=== PATIENT | female | born 1945 | race Caucasian/White ===

== ENCOUNTER → 2016-09-08 | Outpatient (CLI) | payer OTHER ==
[~2016-09-08] MED LIST: ACETAMINOPHEN-H1 TA1 PO; AMLODIPINE BESYL5 MG PO; AMLODIPINE10 MG PO; ANTIVERT/2525 MG PO; ASPIRIN81 M1 PO; AUGMENTIN 875875 MG PO; BENADRYL25 M1 PO; BENAZEPRIL10 MG PO; BENAZEPRIL40 MG PO; BYETTA10 MCG/0.0 SC; CARAFATE1 G1 PO; CRESTOR40 M1 PO; CYCLOBENZAPRINE10 MG PO; DIOVAN40 MG PO; DIOVAN80 M1 PO; DUREZOL 5 ML5 ML OP; EPA FISH OIL1000 MG PO; FISH OIL SUPER1 SGL PO; GABAPENTIN800 MG PO; GLIMEPIRIDE2 MG PO; GLUCOTROL5 MG PO; GLYBURIDE5 MG PO; HUMALOG100 U/ML SC; HYDROCODONE BIT1 T11 PO; IBUPROFEN600 MG PO; INVOKANA300 M1 PO; JANUVIA100 MG PO; KEFLEX500 MG PO; LANTUS SOLOS100 U/M1 SC; LANTUS100 U/ML SC; LASIX20 MG PO; LEXAPRO10 MG PO; LIDEX0.05% T; LOTENSIN40 MG PO; LYRICA25 MG PO; MACROBID100 M1 PO; MEDROL DOSEPAK4 MG PO; METFORMIN500 MG PO; MICRONASE5 MG PO; MOBIC15 MG PO; MOTRIN IB200 M1 PO; MOTRIN JUNIOR100 M1 PO; NATURE'S BLEND F1 MG PO; NEURONTIN100 MG PO; NEURONTIN300 MG PO; NEXIUM I.V.40 MG PO; NEXIUM20 MG PO; NEXIUM40 MG PO; NORVASC10 MG PO; NORVASC5 MG PO; NOVOLOG MI100 UNIT/2 SC; OMEGA 3 FISH O1 EACH PO; OMEGA-3 KRILL O1 SGL PO; Orphenadrine C100 MG PO; PRAVACHOL20 MG PO; PRAVACHOL40 MG PO; PREDNICOT20 MG PO; PREDNISONE10 MG PO; TOPROL-XL50 MG PO; TRAVATAN 0.0042.5 M1 INTRAOC; TRULICITY1.5 MG/0.5 SC; TYLENOL325 M1 PO; VICODIN 5/500 505 MG PO; VICODIN 500 MG-1 TAB PO; VICTOZA6 MG/ML SC; VITAMIN B COMPL1 T12; VITAMIN B121000 MC2 SL; VITAMIN D2000 IU PO; VITAMIN D5000 IU PO; VITAMIN D5000 UNI1 PO; XANAX0.25 MG PO; ZITHROMAX250 MG PO; ZOCOR80 MG PO; [UNRECOGNIZED DRUG - OTHER] IM
== END | disposition home or self-care (01) ==
LOC: RAD 09:57
DX: M47.896 Other spondylosis, lumbar region (principal); M54.5 Low back pain; N20.0 Calculus of kidney; M25.561 Pain in right knee; M25.461 Effusion, right knee; M25.551 Pain in right hip

== ENCOUNTER 2016-09-11 23:18 | Inpatient (IN) | payer OTHER ==
[~2016-09-11] VITALS: Ht 157.4 cm; Wt 84.5 kg
--- NOTE | ~2016-09-11 | PR ---
[place], [place] PROGRESS NOTE NAME: [facility]OS [id number] UNIT #: [id number] ROOM: 508 DOCTOR: RUBINA COTE [facility]NELLY BIRTHDATE: [birth year] DOS: 09/13/2016 SUBJECTIVE: Feeling fairly well. OBJECTIVE: VITAL SIGNS: Heart rate is about 55-60. SKIN: Warm and not diaphoretic. NECK: Supple. LUNGS: No rales. HEART: S1, S2. No gallops. ABDOMEN: Soft. IMAGING STUDIES: Myocardial perfusion scan abnormal indicated myocardial ischemia. IMPRESSION: Myocardial ischemia, coronary artery disease. PLAN: Coronary arteriography. However, because of the case could not get to the [facility] and probably she may be going to the [facility], make her that she could go from it, fine otherwise, could also be managed as an outpatient and have the cardiac catheterization done electively. Options were explained and we will continue to follow the patient in my office. Instructions were given. NELLY CESPEDES MD CM:PNTRANS [id number] NELLY CESPEDES MD [facility] 09/14/16 0723 interface
--- NOTE | ~2016-09-11 | ST ---
[place], [place] EXERCISE STRESS TEST REPORT NAME: NIKKI AVALOS UNIT #: [id number] ROOM: 508 DOCTOR: RUBINA COTE [facility],NE[facility] BIRTHDATE: [birth year] DOS: 09/12/2016 The patient received Lexiscan 0.4 mg over 10 seconds. Heart rate is 72. No ischemic change in the EKG. No complications isotope injected. Occasional PACs noted on ekg and myocardial perfusion scan to follow. NELLY CESPEDES MD CM:STRESS:EXERCISE STRESS TEST REPORT [id number] NINA TRAORE MD [facility]
--- NOTE | ~2016-09-11 | CON ---
[place], [place] REPORT OF CONSULTATION NAME: [facility]VALOS [facility] [id number] UNIT #: [id number] ROOM: 508 DOCTOR: [facility] B[facility]: [birth year] DOS: 09/12/2016 IMPRESSION: Poorly controlled diabetes mellitus, hemoglobin A1c is elevated and severe hypertension, borderline increase in the troponin. Either nonspecific or could be related to a small non-ST elevation myocardial infarction. The patient has crescendo angina. Headache probably related to posterior neck, probably a little bit of hypertension. Dr. Bruno has seen the patient and blood sugar more than 600 and hemoglobin A1c greater than 7. Overall control of the sugar is not optimal, but not critical. The patient has history of mild aortic aneurysm within the chest. The patient is on metoprolol, and the blood pressure needs to be tightly controlled because of the thoracic aneurysm. REVIEW OF SYSTEMS: HEENT: Unremarkable. CARDIOPULMONARY: As described. GASTROINTESTINAL: Unremarkable. GENITOURINARY: Unremarkable. NEUROLOGICAL: No issue for stroke, no syncope. ALLERGIES: The patient is allergic to SULFA and AVELOX and DILAUDID, DIOVAN, CIPRO, AMLODIPINE, BISOPROLOL, CANDESARTAN, HYDROCHLOROTHIAZIDE and METFORMIN. MEDICATIONS: The patient's gabapentin, ibuprofen, fully p.r.n., not on routine basis, and the patient's prednisone 10 mg daily. The patient also on benazepril, insulin, baby aspirin, metoprolol 50 mg at bedtime, and furosemide 20 mg daily. The patient has a history of smoking in the past, but not now for many years. FAMILY HISTORY: Diabetes and coronary artery disease. History of hypertension. PHYSICAL EXAMINATION: GENERAL: Alert, responding well, hypertensive. LUNGS: No rales heard. HEART: S1, S2 regular. No gallops heard. ABDOMEN: Soft. SKIN: Warm, not diaphoretic, no focal neurologic deficit noted. LABORATORY DATA: Chest x-ray was unremarkable. Troponin is minimally elevated with pulse ox ____ and blood pressure now is 140/82, much stable than initial 224/110, a lot better now with optimum medical therapy. Electrolytes: Sodium 134, otherwise unremarkable and GFR is normal. Hemoglobin is 15.8. EKG, no acute changes. DIAGNOSES: Crescendo angina, possible small non-ST elevation myocardial ____ very minimal elevation of the troponin. [place] coronary artery disease is considered. Strong ____ the patient is hypertensive and diabetic, high risk for coronary artery disease and awaiting for myocardial perfusion scan. I will review the echocardiogram also. [place], [place] REPORT OF CONSULTATION NAME: NIKKI AVALOS UNIT #: [id number] ROOM: 508 DOCTOR: RUBINA COTE [facility] BIRTHDATE: [birth year] Thank you very much for asking me to see the patient. I will follow the patient. NELLY CESPEDES MD CM:CONSTR:REPORT OF CONSULTATION 09/13/16 1450 interface NINA RUBIO DO and APOLONIA ARELLANO
--- NOTE | ~2016-09-11 | PR ---
[place], [place] PROGRESS NOTE NAME: NIKKI AVALOS [facility] #: [id number] UNIT #: [id number] ROOM: 508 DOCTOR: ZAC MANN MD BIRTHDATE: [birth year] DOS: 09/13/2016 CARDIOLOGY PROGRESS NOTE SUBJECTIVE: The patient is a 70-year-old woman with multiple risk factors for coronary artery disease. We were asked to see her to consider possible catheterization. She has been evaluated by Dr. Gray who completed a stress test and echocardiogram. I reviewed the images and agree with the assessment that she does have multiple risk factors. However, I think that the images obtained were fairly low risk. In addition, she has had a catheterization in the past, which was normal. Nonetheless, given her risks, Dr. Gray and the patient's family have requested that we proceed with catheterization. I have arranged for this to occur at the [facility] on 09/14/2016. Indication is number 3 with a score of 8. We will be available to assist in the patient's care while she is hospitalized at [place] but she should be transferred early on the morning of 09/14/2016 for catheterization and revascularization if appropriate at that time. We thank the hospitalist service for asking our advice regarding her care. ZAC MANN MD CM:PNTRANS [phone] ZAC MANN MD 09/14/16 0908 interface
[2016-09-11 23:18] VITALS: BP 190/80
[~2016-09-11 23:18] MED LIST changes: -ACETAMINOPHEN-H1 TA1 PO; -AMLODIPINE BESYL5 MG PO; -CRESTOR40 M1 PO; -GABAPENTIN800 MG PO; -GLIMEPIRIDE2 MG PO; -INVOKANA300 M1 PO; -LANTUS SOLOS100 U/M1 SC; -NATURE'S BLEND F1 MG PO; -TRULICITY1.5 MG/0.5 SC; -VITAMIN D5000 UNI1 PO
[2016-09-12] VITALS (8 sets, daily range): BP systolic 120–224; BP diastolic 62–110
[2016-09-12] LABS: BASO % 0.2 % (0.0-1.0); HEMATOCRIT 44.6 % (37.0-47.0); HEMOGLOBIN 15.8 g/dl (12.0-16.0); IG # 0.2 10*3/uL (0.0-0.1); LYMPH # 1.2 10*3/uL (1.3-4.4); LYMPH % 9.1 % (27.0-41.0); MEAN CELL VOLUME 93.1 fl (81.0-99.0); MEAN CORPUSCULAR HGB CONC 35.4 g/dl (33.0-37.0); MEAN PLATELET VOLUME 10.1 fl (9.6-12.3); MONO # 0.1 10*3/uL (0.1-1.0); MONO % 0.9 % (3.0-9.0); NEUT # 11.6 10*3/uL (2.3-7.9); NEUT % 88.5 % (47.0-73.0); PLATELET COUNT AUTOMATED 200 10*3/uL (130-400); RED BLOOD COUNT 4.79 10*6/uL (4.10-5.10); WHITE BLOOD COUNT 13.1 10*3/uL (4.8-10.8)
[2016-09-12 00:18] LABS: ALBUMIN 3.3 gm/dl (3.1-4.5); ALKALINE PHOSPHATASE 161 U/L (45-117); BILIRUBIN, TOTAL 0.3 mg/dl (0.2-1.0); BUN 17 mg/dl (7-24); CARBON DIOXIDE 23 mmol/L (21-32); CHLORIDE 101 mmol/L (98-107); CPK 35 U/L (26-192); EST GLOM FILT AFRICAN AMERICAN > 60 ml/min; GLUCOSE 477 mg/dL (65-99); LDH 171 U/L (84-246); POTASSIUM 4.2 mmol/L (3.5-5.1); SGOT/AST 33 IU/L (3-35); SGPT/ALT 37 U/L (12-78); SODIUM 134 mmol/L (136-145); TOTAL PROTEIN 6.8 gm/dL (6.4-8.2)
[2016-09-12 00:19] LABS: CKMB 1.5 ng/ml (0.5-3.6)
[2016-09-12 00:22] LABS: TROPONIN I 0.063 ng/ml (<0.045)
[2016-09-12 00:42] LABS: BILIRUBIN NEGATIVE (NEGATIVE); BLOOD NEGATIVE (NEGATIVE); CLARITY CLEAR (CLEAR); COLOR YELLOW (YELLOW); GLUCOSE 3+ (NEGATIVE); KETONE NEGATIVE (NEGATIVE); LEUKO ESTERASE NEGATIVE (NEGATIVE); NITRITE NEGATIVE (NEGATIVE); PROTEIN NEGATIVE (NEGATIVE); UROBILINOGEN 0.2 E.U./dl (0.2-1.0)
[2016-09-12 00:50] LABS: BACTERIA TRACE; EPITHELIAL CELLS 0-2; RBC 0-2 rbc/hpf (0-2); URINE REFLEX COMMENT NO (NO); WBC 0-2 wbc/hpf (0-5)
[2016-09-12] MEDS ORDERED: GABAPENTIN800 MG PO (02:44)
[2016-09-12] MEDS ORDERED: ACETAMINOPHEN-H1 TA1 PO (02:47)
[2016-09-12] MEDS ORDERED: NATURE'S BLEND F1 MG PO (02:49)
[2016-09-12] MEDS ORDERED: LANTUS SOLOS100 U/M1 SC (02:50)
[2016-09-12] MEDS ORDERED: INVOKANA300 M1 PO (02:52)
[2016-09-12] MEDS ORDERED: VITAMIN D5000 UNI1 PO (02:54)
[2016-09-12] MEDS ORDERED: TRULICITY1.5 MG/0.5 SC (02:55)
[2016-09-12] MEDS ORDERED: AMLODIPINE BESYL5 MG PO (03:11)
[2016-09-12] MEDS ORDERED: GLIMEPIRIDE2 MG PO (03:12)
[2016-09-12] MEDS ORDERED: CRESTOR40 M1 PO (03:13)
[2016-09-12 04:02] LABS: BASO % 0.2 % (0.0-1.0); EOS % 0.1 % (1.0-4.0); HEMATOCRIT 42.5 % (37.0-47.0); HEMOGLOBIN 15.1 g/dl (12.0-16.0); IG # 0.2 10*3/uL (0.0-0.1); LYMPH % 12.9 % (27.0-41.0); MEAN CELL VOLUME 91.4 fl (81.0-99.0); MEAN CORPUSCULAR HGB 32.5 pg (27.0-31.0); MEAN CORPUSCULAR HGB CONC 35.5 g/dl (33.0-37.0); MEAN PLATELET VOLUME 9.9 fl (9.6-12.3); MONO # 0.4 10*3/uL (0.1-1.0); MONO % 2.5 % (3.0-9.0); NEUT # 12.8 10*3/uL (2.3-7.9); NEUT % 82.9 % (47.0-73.0); PLATELET COUNT AUTOMATED 215 10*3/uL (130-400); RED BLOOD COUNT 4.65 10*6/uL (4.10-5.10); WHITE BLOOD COUNT 15.4 10*3/uL (4.8-10.8)
[2016-09-12 04:15] LABS: INTERNATIONAL NORM RATIO 0.9 (2.0-3.5); PROTHROMBIN TIME 9.4 SECONDS (9.0-12.4)
[2016-09-12 04:18] LABS: ALBUMIN 3.3 gm/dl (3.1-4.5); ALKALINE PHOSPHATASE 137 U/L (45-117); BILIRUBIN, TOTAL 0.4 mg/dl (0.2-1.0); BUN 14 mg/dl (7-24); CARBON DIOXIDE 25 mmol/L (21-32); CHLORIDE 103 mmol/L (98-107); CHOLESTEROL 174 mg/dL (<200); EST GLOM FILT AFRICAN AMERICAN > 60 ml/min; GLUCOSE 301 mg/dL (65-99); HDL CHOLESTEROL 54 mg/dl (40-60); LDL CHOLESTEROL 83 mg/dL (9-159); MAGNESIUM 2.1 mg/dL (1.5-2.1); PHOSPHOROUS 2.5 mg/dL (2.5-4.9); POTASSIUM 4.1 mmol/L (3.5-5.1); SGOT/AST 25 IU/L (3-35); SGPT/ALT 34 U/L (12-78); SODIUM 138 mmol/L (136-145); TOTAL PROTEIN 6.7 gm/dL (6.4-8.2); TRIGLYCERIDES 183 mg/dl (<150); VLDL CHOLESTEROL 37 mg/dL (6-40)
[2016-09-12 04:19] LABS: FREE T4 0.91 ng/dl (0.76-1.46)
[2016-09-12 04:20] LABS: HEMOGLOBIN A1c 7.4 % (4.8-5.6)
[2016-09-12 04:24] LABS: THYROID STIM HORMONE (HS) 0.811 uIU/ml (0.358-4.75)
[2016-09-12 04:33] LABS: CKMB 1.2 ng/ml (0.5-3.6)
[2016-09-12 07:01] LABS: VITAMIN D, 25-HYDROXY 41.1 ng/mL (30-100)
[2016-09-12 07:02] LABS: FOLIC ACID 19.62 ng/mL (>5.38)
[2016-09-12 10:13] LABS: CKMB 1.5 ng/ml (0.5-3.6); TROPONIN I 0.041 ng/ml (<0.045)
[2016-09-13] VITALS: BP 141/56
[2016-09-13 08:00] VITALS: BP 152/80; BP 180/82
[2016-09-13 12:00] VITALS: BP 172/90
[2016-09-13 16:00] VITALS: BP 141/84
[2016-09-13] MEDS ORDERED: METOPROLOL TART50 M1 PO (19:27)
[2016-09-13] MEDS ORDERED: LISINOPRIL20 MG PO (19:27)
[2016-09-13] MEDS ORDERED: SIMVASTATIN20 MG PO (19:27)
[2016-09-13 20:00] VITALS: BP 138/64
[2016-09-14 00:04] VITALS: BP 130/60
== END 2016-09-14 06:00 | disposition other institution (70) | DRG 305 ==
LOC: ED 23:18 → EDHOLD 09-12 00:43 → 5E 09-12 00:43
PROVIDERS: Internal Medicine; Physician Assistant
PROC: 4A02XM4 Measurement of Cardiac Total Activity, External Approach (ICD-10-PCS; principal; 2016-09-12)
DX: I16.1 Hypertensive emergency (principal); E11.65 Type 2 diabetes mellitus with hyperglycemia; I25.110 Atherosclerotic heart disease of native coronary artery with unstable angina pectoris; J44.9 Chronic obstructive pulmonary disease, unspecified; E44.1 Mild protein-calorie malnutrition; E87.1 Hypo-osmolality and hyponatremia; I10 Essential (primary) hypertension; D72.829 Elevated white blood cell count, unspecified; K21.9 Gastro-esophageal reflux disease without esophagitis; E78.5 Hyperlipidemia, unspecified; F32.9 Major depressive disorder, single episode, unspecified; M54.12 Radiculopathy, cervical region; I25.9 Chronic ischemic heart disease, unspecified; Z86.73 Personal history of transient ischemic attack (TIA), and cerebral infarction without residual deficits; Z90.49 Acquired absence of other specified parts of digestive tract; Z98.51 Tubal ligation status; Z87.891 Personal history of nicotine dependence; Z88.2 Allergy status to sulfonamides; Z88.1 Allergy status to other antibiotic agents; Z88.8 Allergy status to other drugs, medicaments and biological substances; Z79.82 Long term (current) use of aspirin; Z79.4 Long term (current) use of insulin; Z79.899 Other long term (current) drug therapy; Z68.34 Body mass index [BMI] 34.0-34.9, adult

== ENCOUNTER 2016-09-25 14:48 | Emergency (ER) | payer OTHER ==
[~2016-09-25] VITALS: Ht 157.4 cm; Wt 84.4 kg
[~2016-09-25 14:48] MED LIST changes: +ACETAMINOPHEN-H1 TA1 PO; +AMLODIPINE BESYL5 MG PO; +CRESTOR40 M1 PO; +GABAPENTIN800 MG PO; +GLIMEPIRIDE2 MG PO; +INVOKANA300 M1 PO; +LANTUS SOLOS100 U/M1 SC; +LISINOPRIL20 MG PO; +METOPROLOL TART50 M1 PO; +NATURE'S BLEND F1 MG PO; +SIMVASTATIN20 MG PO; +TRULICITY1.5 MG/0.5 SC; +VITAMIN D5000 UNI1 PO
[2016-09-25 14:53] VITALS: BP 149/64
== END 2016-09-25 16:15 | disposition home or self-care (01) ==
LOC: ED 14:48
DX: G89.29 Other chronic pain (principal); M54.5 Low back pain; R03.0 Elevated blood-pressure reading, without diagnosis of hypertension; Z87.891 Personal history of nicotine dependence; Z90.49 Acquired absence of other specified parts of digestive tract; J44.9 Chronic obstructive pulmonary disease, unspecified; F32.9 Major depressive disorder, single episode, unspecified; E11.9 Type 2 diabetes mellitus without complications; K21.9 Gastro-esophageal reflux disease without esophagitis; E78.5 Hyperlipidemia, unspecified; I10 Essential (primary) hypertension; Z86.73 Personal history of transient ischemic attack (TIA), and cerebral infarction without residual deficits; Z79.4 Long term (current) use of insulin; Z79.82 Long term (current) use of aspirin; Z79.899 Other long term (current) drug therapy; Z88.1 Allergy status to other antibiotic agents; Z88.2 Allergy status to sulfonamides; Z88.6 Allergy status to analgesic agent; Z88.8 Allergy status to other drugs, medicaments and biological substances; Z91.041 Radiographic dye allergy status

== ENCOUNTER → 2016-11-15 | Outpatient (CLI) | payer OTHER | LOC: MAMMO 14:00 | DX: Z12.31 Encounter for screening mammogram for malignant neoplasm of breast (principal) ==

== ENCOUNTER → 2017-02-04 | Outpatient (CLI) | payer OTHER ==
[~2017-02-04] MED LIST changes: +B121000 MCG/1 IM; +LANTUS SOL100 UNIT/1 SQ; +LISINOPRIL-HCT1 EACH PO; +METOPROLOL SUCC50 M1 PO; +PERCOCET 10-321 EACH PO
[2017-02-04 11:32] LABS: BASO % 0.4 % (0.0-1.0); EOS # 0.2 10*3/uL (0.0-0.4); EOS % 2.2 % (1.0-4.0); HEMATOCRIT 44.6 % (37.0-47.0); HEMOGLOBIN 15.5 g/dl (12.0-16.0); LYMPH # 2.9 10*3/uL (1.3-4.4); LYMPH % 34.6 % (27.0-41.0); MEAN CELL VOLUME 96.3 fl (81.0-99.0); MEAN CORPUSCULAR HGB 33.5 pg (27.0-31.0); MEAN CORPUSCULAR HGB CONC 34.8 g/dl (33.0-37.0); MEAN PLATELET VOLUME 9.7 fl (9.6-12.3); MONO # 0.5 10*3/uL (0.1-1.0); MONO % 6.2 % (3.0-9.0); NEUT # 4.7 10*3/uL (2.3-7.9); NEUT % 56.4 % (47.0-73.0); PLATELET COUNT AUTOMATED 223 10*3/uL (130-400); RED BLOOD COUNT 4.63 10*6/uL (4.10-5.10); WHITE BLOOD COUNT 8.3 10*3/uL (4.8-10.8)
[2017-02-04 11:54] LABS: ALBUMIN 3.3 gm/dl (3.1-4.5); ALKALINE PHOSPHATASE 105 U/L (45-117); BUN 6 mg/dl (7-24); CHLORIDE 105 mmol/L (98-107); CHOLESTEROL 194 mg/dL (<200); CREATININE 0.84 mg/dL (0.55-1.02); HDL CHOLESTEROL 34 mg/dl (40-60); LDL CHOLESTEROL 92 mg/dL (9-159); POTASSIUM 3.4 mmol/L (3.5-5.1); SGOT/AST 18 IU/L (3-35); SGPT/ALT 20 U/L (12-78); SODIUM 143 mmol/L (136-145); TOTAL PROTEIN 7.4 gm/dL (6.4-8.2); TRIGLYCERIDES 341 mg/dl (<150); VLDL CHOLESTEROL 68 mg/dL (6-40)
== END | disposition home or self-care (01) ==
LOC: LAB 10:27
PROVIDERS: Nurse Practitioner Family
DX: E78.4 Other hyperlipidemia (principal); I10 Essential (primary) hypertension; E11.9 Type 2 diabetes mellitus without complications

== ENCOUNTER 2017-02-06 16:08 | Inpatient (IN) | payer OTHER ==
[2017-02-06] VITALS (7 sets, daily range): BP systolic 168–223; BP diastolic 74–98
[~2017-02-06] VITALS: Ht 157.4 cm; Wt 83.0 kg
[~2017-02-06 16:08] MED LIST changes: -B121000 MCG/1 IM; -LANTUS SOL100 UNIT/1 SQ; -LISINOPRIL-HCT1 EACH PO; -METOPROLOL SUCC50 M1 PO; -PERCOCET 10-321 EACH PO
[2017-02-06 16:50] LABS: BASO % 0.4 % (0.0-1.0); EOS # 0.1 10*3/uL (0.0-0.4); EOS % 1.1 % (1.0-4.0); HEMATOCRIT 42.3 % (37.0-47.0); LYMPH % 31.7 % (27.0-41.0); MEAN CELL VOLUME 93.4 fl (81.0-99.0); MEAN CORPUSCULAR HGB 33.1 pg (27.0-31.0); MEAN CORPUSCULAR HGB CONC 35.5 g/dl (33.0-37.0); MEAN PLATELET VOLUME 9.3 fl (9.6-12.3); MONO # 0.6 10*3/uL (0.1-1.0); NEUT # 5.7 10*3/uL (2.3-7.9); NEUT % 60.6 % (47.0-73.0); PLATELET COUNT AUTOMATED 216 10*3/uL (130-400); RED BLOOD COUNT 4.53 10*6/uL (4.10-5.10); WHITE BLOOD COUNT 9.4 10*3/uL (4.8-10.8)
[2017-02-06] MEDS ORDERED: METOPROLOL SUCC50 M1 PO (16:50)
[2017-02-06] MEDS ORDERED: LISINOPRIL-HCT1 EACH PO (16:54)
[2017-02-06 16:57] LABS: INTERNATIONAL NORM RATIO 0.9 (2.0-3.5)
[2017-02-06 17:11] LABS: ALBUMIN 3.4 gm/dl (3.1-4.5); ALKALINE PHOSPHATASE 102 U/L (45-117); BUN 8 mg/dl (7-24); CHLORIDE 104 mmol/L (98-107); CREATININE 0.84 mg/dL (0.55-1.02); MAGNESIUM 2.1 mg/dL (1.5-2.1); POTASSIUM 3.4 mmol/L (3.5-5.1); SGOT/AST 20 IU/L (3-35); SGPT/ALT 23 U/L (12-78); SODIUM 140 mmol/L (136-145); TOTAL PROTEIN 7.5 gm/dL (6.4-8.2)
[2017-02-06 17:16] LABS: TROPONIN I 0.055 ng/ml (<0.045)
[2017-02-06 17:19] LABS: BILIRUBIN NEGATIVE (NEGATIVE); BLOOD TRACE-INTACT (NEGATIVE); CLARITY CLEAR (CLEAR); COLOR YELLOW (YELLOW); GLUCOSE 3+ (NEGATIVE); KETONE NEGATIVE (NEGATIVE); LEUKO ESTERASE NEGATIVE (NEGATIVE); NITRITE NEGATIVE (NEGATIVE); PH 5.5 (5.0-9.0); SPECIFIC GRAVITY <= 1.005 (1.005-1.030); UROBILINOGEN 0.2 E.U./dl (0.2-1.0)
[2017-02-06 17:30] LABS: BACTERIA 2+; RBC 0-2 rbc/hpf (0-2)
--- NOTE | 2017-02-06 18:40 | NUR ---
A 71, admitted to , under the services of SALOMÓN Gong DO with a diagnosis of CHEST PAIN. Chief complaint is CHEST PAIN. Patient arrived via bed from ER. Monitor applied. Initial assessment completed. Vital signs taken and recorded. SALOMÓN GONG DO notified of admission to the unit. Orders received. See assessment for past medical history, medications and allergies. Patient and/or family oriented to unit. [facility] Clothing/patient valuable form completed. ADELSO DOMINGUEZ
[2017-02-06] MEDS ORDERED: LANTUS SOL100 UNIT/1 SQ ×2 (18:58→22:04)
[2017-02-06] MEDS ORDERED: B121000 MCG/1 IM (20:10)
--- NOTE | 2017-02-06 21:00 | NUR ---
PATIENT LYING IN BED, WHEN GIVEN HER 10PM MEDS, SHE STATED HER LANTUS WAS WRONG IN THE MED REQ AND ALSO THE MOTRIN AND OTHER PAIN PILL. PATIENT CALLED DAUGHTER ON PHONE TO VERIFY MEDS. I CHANGED MED REQ, CONTACTED DR. WALTERS ABOUT THE CHANGES. PATIENT DENIES ANY SYMPTOMS AT THIS TIME. PATIENT STATED SHE IS READY TO GO HOME. WILL CONTINUE TO MONITOR. PATIENT LEFT WITH CALL LIGHT IN REACH.
[2017-02-06] MEDS ORDERED: PERCOCET 10-321 EACH PO (21:51)
[2017-02-07] VITALS: BP 192/75
[2017-02-07 02:00] VITALS: BP 162/82
[2017-02-07 02:11] LABS: BASO % 0.4 % (0.0-1.0); EOS # 0.2 10*3/uL (0.0-0.4); EOS % 1.5 % (1.0-4.0); HEMATOCRIT 40.4 % (37.0-47.0); HEMOGLOBIN 14.3 g/dl (12.0-16.0); LYMPH # 3.5 10*3/uL (1.3-4.4); LYMPH % 35.8 % (27.0-41.0); MEAN CELL VOLUME 93.7 fl (81.0-99.0); MEAN CORPUSCULAR HGB 33.2 pg (27.0-31.0); MEAN CORPUSCULAR HGB CONC 35.4 g/dl (33.0-37.0); MEAN PLATELET VOLUME 9.2 fl (9.6-12.3); MONO # 0.7 10*3/uL (0.1-1.0); MONO % 6.6 % (3.0-9.0); NEUT # 5.5 10*3/uL (2.3-7.9); NEUT % 55.6 % (47.0-73.0); PLATELET COUNT AUTOMATED 209 10*3/uL (130-400); RED BLOOD COUNT 4.31 10*6/uL (4.10-5.10); WHITE BLOOD COUNT 9.9 10*3/uL (4.8-10.8)
[2017-02-07 02:24] LABS: ACT PARTIAL THROMBO TIME 23.3 SECONDS (20.8-31.5); INTERNATIONAL NORM RATIO 0.9 (2.0-3.5)
[2017-02-07 02:25] LABS: BUN 10 mg/dl (7-24); CHLORIDE 102 mmol/L (98-107); CREATININE 0.97 mg/dL (0.55-1.02); SODIUM 140 mmol/L (136-145)
[2017-02-07 02:30] LABS: CHOLESTEROL 204 mg/dL (<200); HDL CHOLESTEROL 31 mg/dl (40-60); LDL CHOLESTEROL 108 mg/dL (9-159); TRIGLYCERIDES 324 mg/dl (<150); VLDL CHOLESTEROL 65 mg/dL (6-40)
[2017-02-07 02:51] LABS: VITAMIN D, 25-HYDROXY 42.2 ng/mL (30-100)
[2017-02-07 08:00] VITALS: BP 148/61
--- NOTE | 2017-02-07 08:00 | NUR ---
AWAKE ALERT AND ORIENTED X3, NO S/S OF DISTRESS. ONLY COMPLAINT IS FEELING DIAPHORETIC. SEE ASSESS. CALL LIGHT IN REACH. WILL CONT TO MONITOR.
--- NOTE | 2017-02-07 08:25 | NUR ---
DR VILLELA NOTIFIED K 3.0
--- NOTE | 2017-02-07 09:00 | NUR ---
Theater Teacher in to talk to patient. Patient states lives at home with alone. There are few steps in the home. Physician: mark garcia Pharmacy: [facility] health services: none Patient's level of ADLs: INDEPENDENT Patient has working utilities: all working DME: none Follow-up physician's appointment after d/c: will be made by hospitalist nurse director upon discharge Does patient want to access PORTAL?: no Discharge plan discussed with patient, patient states she is independent in adls and ambulation, she states she will be going home upon discharge and denies any home needs. MONO HERNANDEZ
[2017-02-07 12:00] VITALS: BP 136/78
--- NOTE | 2017-02-07 12:20 | NUR ---
PT DISCHARGED AT THIS TIME. IV REMOVED AND PRESSURE DRESSING APPLIED. VERBALIZED UNDERSTANDING OF DISCHARGE INTRUCTIONS. HEART MONITOR RETURNED TO FLOOR.
== END 2017-02-07 12:20 | disposition home or self-care (01) | DRG 305 ==
LOC: ED 16:08 → 4E 17:54 → EDHOLD 17:54 → 4E 18:05
PROVIDERS: Internal Medicine; Nurse Practitioner Family; ADMIT Internal Medicine
DX: I16.0 Hypertensive urgency (principal); E11.65 Type 2 diabetes mellitus with hyperglycemia; I71.2 Thoracic aortic aneurysm, without rupture; E44.1 Mild protein-calorie malnutrition; J44.9 Chronic obstructive pulmonary disease, unspecified; E87.6 Hypokalemia; M25.519 Pain in unspecified shoulder; F32.9 Major depressive disorder, single episode, unspecified; R82.71 Bacteriuria; E78.5 Hyperlipidemia, unspecified; K21.9 Gastro-esophageal reflux disease without esophagitis; Z86.73 Personal history of transient ischemic attack (TIA), and cerebral infarction without residual deficits; Z82.49 Family history of ischemic heart disease and other diseases of the circulatory system; Z83.3 Family history of diabetes mellitus; Z91.041 Radiographic dye allergy status; Z88.2 Allergy status to sulfonamides; Z88.1 Allergy status to other antibiotic agents; Z88.8 Allergy status to other drugs, medicaments and biological substances; Z79.82 Long term (current) use of aspirin; Z79.899 Other long term (current) drug therapy; Z79.4 Long term (current) use of insulin; Z68.33 Body mass index [BMI] 33.0-33.9, adult

== ENCOUNTER → 2017-02-15 | Outpatient (CLI) | payer OTHER ==
[~2017-02-15] MED LIST changes: +B121000 MCG/1 IM; +LANTUS SOL100 UNIT/1 SQ; +LISINOPRIL-HCT1 EACH PO; +METOPROLOL SUCC50 M1 PO; +PERCOCET 10-321 EACH PO
== END | disposition home or self-care (01) ==
LOC: LAB 10:37 → MRI 11:00
DX: E87.5 Hyperkalemia (principal); M79.9 Soft tissue disorder, unspecified; R20.0 Anesthesia of skin

== ENCOUNTER → 2017-02-21 | Outpatient (CLI) | payer OTHER | END | disposition home or self-care (01) | LOC: CARD 12:41 | DX: R07.9 Chest pain, unspecified (principal); I10 Essential (primary) hypertension ==

== ENCOUNTER → 2017-04-03 | Outpatient (CLI) | payer OTHER | LOC: RAD 13:54 | DX: M47.897 Other spondylosis, lumbosacral region (principal); M48.061 Spinal stenosis, lumbar region without neurogenic claudication; M48.07 Spinal stenosis, lumbosacral region ==

== ENCOUNTER → 2017-04-15 | Outpatient (CLI) | payer OTHER ==
[2017-04-15 16:47] LABS: BILIRUBIN NEGATIVE (NEGATIVE); BLOOD NEGATIVE (NEGATIVE); CLARITY CLEAR (CLEAR); COLOR YELLOW (YELLOW); GLUCOSE 3+ (NEGATIVE); KETONE NEGATIVE (NEGATIVE); LEUKO ESTERASE TRACE (NEGATIVE); NITRITE NEGATIVE (NEGATIVE); SPECIFIC GRAVITY <= 1.005 (1.005-1.030); UROBILINOGEN 0.2 E.U./dl (0.2-1.0)
[2017-04-15 17:06] LABS: ALBUMIN 3.3 gm/dl (3.1-4.5); ALKALINE PHOSPHATASE 116 U/L (45-117); BUN 11 mg/dl (7-24); CHLORIDE 103 mmol/L (98-107); CHOLESTEROL 148 mg/dL (<200); CREATININE 0.98 mg/dL (0.55-1.02); HDL CHOLESTEROL 39 mg/dl (40-60); LDL CHOLESTEROL 44 mg/dL (9-159); POTASSIUM 3.9 mmol/L (3.5-5.1); SGOT/AST 14 IU/L (3-35); SGPT/ALT 19 U/L (12-78); SODIUM 140 mmol/L (136-145); TOTAL PROTEIN 7.1 gm/dL (6.4-8.2); TRIGLYCERIDES 323 mg/dl (<150); VLDL CHOLESTEROL 65 mg/dL (6-40)
[2017-04-15 17:08] LABS: BILIRUBIN, DIRECT < 0.1 mg/dL (0.0-0.2)
[2017-04-15 17:36] LABS: BACTERIA TRACE; YEAST 1+
== END | disposition home or self-care (01) ==
LOC: LAB 16:13
PROVIDERS: Internal Medicine
DX: E11.65 Type 2 diabetes mellitus with hyperglycemia (principal); E55.9 Vitamin D deficiency, unspecified; E78.5 Hyperlipidemia, unspecified; R31.9 Hematuria, unspecified

== ENCOUNTER 2017-05-16 12:22 | Inpatient (IN) | payer OTHER ==
[~2017-05-16] VITALS: Ht 157.5 cm; Wt 86.8 kg
[2017-05-16 12:50] VITALS: BP 175/75
[2017-05-16] MEDS ORDERED: CRESTOR40 M1 PO (15:28)
[2017-05-16 16:00] VITALS: BP 158/60
[2017-05-16 19:11] LABS: BASO % 0.4 % (0.0-1.0); EOS # 0.1 10*3/uL (0.0-0.4); EOS % 1.2 % (1.0-4.0); HEMATOCRIT 41.4 % (37.0-47.0); HEMOGLOBIN 14.6 g/dl (12.0-16.0); LYMPH # 3.8 10*3/uL (1.3-4.4); LYMPH % 39.9 % (27.0-41.0); MEAN CELL VOLUME 95.4 fl (81.0-99.0); MEAN CORPUSCULAR HGB 33.6 pg (27.0-31.0); MEAN CORPUSCULAR HGB CONC 35.3 g/dl (33.0-37.0); MEAN PLATELET VOLUME 9.9 fl (9.6-12.3); MONO # 0.5 10*3/uL (0.1-1.0); MONO % 5.3 % (3.0-9.0); PLATELET COUNT AUTOMATED 190 10*3/uL (130-400); RED BLOOD COUNT 4.34 10*6/uL (4.10-5.10); RED CELL DISTRI WIDTH 12.8 % (0-14.5); WHITE BLOOD COUNT 9.4 10*3/uL (4.8-10.8)
[2017-05-16 19:28] LABS: ALBUMIN 3.3 gm/dl (3.1-4.5); ALKALINE PHOSPHATASE 107 U/L (45-117); BUN 12 mg/dl (7-24); CHLORIDE 106 mmol/L (98-107); CREATININE 0.87 mg/dL (0.55-1.02); PHOSPHOROUS 2.5 mg/dL (2.5-4.9); POTASSIUM 3.9 mmol/L (3.5-5.1); SGOT/AST 16 IU/L (3-35); SGPT/ALT 22 U/L (12-78); SODIUM 140 mmol/L (136-145); TOTAL PROTEIN 6.8 gm/dL (6.4-8.2); TROPONIN I 0.038 ng/ml (<0.045)
[2017-05-16 19:38] VITALS: BP 184/81
[2017-05-17 07:30] VITALS: BP 142/82
[2017-05-17 12:00] VITALS: BP 147/63
[2017-05-17 16:00] VITALS: BP 151/66
[2017-05-17 20:00] VITALS: BP 153/71
[2017-05-18] VITALS: BP 160/76
[2017-05-18 08:00] VITALS: BP 138/82
[2017-05-18] MEDS ORDERED: PREDNISONE10 MG PO (10:33)
[2017-05-18] MEDS ORDERED: NEURONTIN300 MG PO (10:37)
== END 2017-05-18 11:05 | disposition home or self-care (01) | DRG 552 ==
LOC: 4E 12:22
PROVIDERS: Family Medicine
DX: M48.061 Spinal stenosis, lumbar region without neurogenic claudication (principal); E11.65 Type 2 diabetes mellitus with hyperglycemia; E11.40 Type 2 diabetes mellitus with diabetic neuropathy, unspecified; M50.20 Other cervical disc displacement, unspecified cervical region; E44.1 Mild protein-calorie malnutrition; C64.1 Malignant neoplasm of right kidney, except renal pelvis; M47.816 Spondylosis without myelopathy or radiculopathy, lumbar region; R29.898 Other symptoms and signs involving the musculoskeletal system; I71.2 Thoracic aortic aneurysm, without rupture; K21.9 Gastro-esophageal reflux disease without esophagitis; F32.9 Major depressive disorder, single episode, unspecified; M54.12 Radiculopathy, cervical region; M19.90 Unspecified osteoarthritis, unspecified site; J44.9 Chronic obstructive pulmonary disease, unspecified; I10 Essential (primary) hypertension; R81 Glycosuria; E78.1 Pure hyperglyceridemia; Z68.34 Body mass index [BMI] 34.0-34.9, adult; Z88.2 Allergy status to sulfonamides; Z88.8 Allergy status to other drugs, medicaments and biological substances; Z86.73 Personal history of transient ischemic attack (TIA), and cerebral infarction without residual deficits; Z90.49 Acquired absence of other specified parts of digestive tract; Z79.4 Long term (current) use of insulin; Z98.51 Tubal ligation status; Z88.1 Allergy status to other antibiotic agents; Z91.041 Radiographic dye allergy status; Z79.82 Long term (current) use of aspirin

== ENCOUNTER → 2017-08-29 | Outpatient (CLI) | payer OTHER ==
[2017-08-29 12:22] LABS: BASO # 0.1 10*3/uL (0.0-0.1); BASO % 0.5 % (0.0-1.0); BILIRUBIN NEGATIVE (NEGATIVE); BLOOD NEGATIVE (NEGATIVE); CLARITY SL CLOUDY (CLEAR); COLOR YELLOW (YELLOW); EOS # 0.2 10*3/uL (0.0-0.4); EOS % 1.3 % (1.0-4.0); GLUCOSE 3+ (NEGATIVE); HEMATOCRIT 44.4 % (37.0-47.0); HEMOGLOBIN 15.2 g/dl (12.0-16.0); KETONE NEGATIVE (NEGATIVE); LEUKO ESTERASE NEGATIVE (NEGATIVE); LYMPH # 2.6 10*3/uL (1.3-4.4); MEAN CORPUSCULAR HGB 33.6 pg (27.0-31.0); MEAN CORPUSCULAR HGB CONC 34.2 g/dl (33.0-37.0); MEAN PLATELET VOLUME 9.9 fl (9.6-12.3); MONO # 0.8 10*3/uL (0.1-1.0); MONO % 6.3 % (3.0-9.0); NEUT # 8.3 10*3/uL (2.3-7.9); NEUT % 69.6 % (47.0-73.0); NITRITE NEGATIVE (NEGATIVE); PH 5.5 (5.0-9.0); PLATELET COUNT AUTOMATED 219 10*3/uL (130-400); RED BLOOD COUNT 4.53 10*6/uL (4.10-5.10); RED CELL DISTRI WIDTH 13.1 % (0-14.5); UROBILINOGEN 0.2 E.U./dl (0.2-1.0); WHITE BLOOD COUNT 11.9 10*3/uL (4.8-10.8)
[2017-08-29 12:51] LABS: ALBUMIN 3.4 gm/dl (3.1-4.5); ALKALINE PHOSPHATASE 120 U/L (45-117); BUN 9 mg/dl (7-24); CHLORIDE 100 mmol/L (98-107); CHOLESTEROL 173 mg/dL (<200); CREATININE 1.03 mg/dL (0.55-1.02); HDL CHOLESTEROL 34 mg/dl (40-60); LDL CHOLESTEROL 74 mg/dL (9-159); POTASSIUM 3.6 mmol/L (3.5-5.1); SGOT/AST 18 IU/L (3-35); SGPT/ALT 25 U/L (12-78); SODIUM 139 mmol/L (136-145); TOTAL PROTEIN 7.4 gm/dL (6.4-8.2); TRIGLYCERIDES 324 mg/dl (<150); VLDL CHOLESTEROL 65 mg/dL (6-40)
[2017-08-29 12:56] LABS: BACTERIA 1+; WBC 16-20 wbc/hpf (0-5)
[2017-08-29 15:22] LABS: VITAMIN D, 25-HYDROXY 32.2 ng/mL (30-100)
== END | disposition home or self-care (01) ==
LOC: LAB 11:56
PROVIDERS: Nurse Practitioner Family
DX: I10 Essential (primary) hypertension (principal); E11.9 Type 2 diabetes mellitus without complications; E78.4 Other hyperlipidemia; E53.8 Deficiency of other specified B group vitamins; E55.9 Vitamin D deficiency, unspecified

== ENCOUNTER → 2017-09-29 | Outpatient (CLI) | payer OTHER ==
[2017-09-29 15:35] LABS: BUN 13 mg/dl (7-24); CREATININE 0.87 mg/dL (0.55-1.02)
[2017-09-30 08:09] LABS: IMMUNOGLOBULIN G, QNT 828 mg/dL (700-1600); IMMUNOGLOBULIN M, QNT 92 mg/dL (26-217)
[2017-10-03 15:05] LABS: IMMUNOFIXATION RESULT, SERUM Comment: (.)
== END | disposition home or self-care (01) ==
LOC: MRI 09-22 10:00 → LAB 12:38 → MRI 13:00
PROVIDERS: Psychiatry & Neurology Neurology
DX: Z13.89 Encounter for screening for other disorder (principal); M50.823 Other cervical disc disorders at C6-C7 level; M48.02 Spinal stenosis, cervical region; R93.0 Abnormal findings on diagnostic imaging of skull and head, not elsewhere classified; R26.89 Other abnormalities of gait and mobility; R20.2 Paresthesia of skin; R20.0 Anesthesia of skin; E78.4 Other hyperlipidemia; I10 Essential (primary) hypertension

== ENCOUNTER 2017-10-02 14:51 | Emergency (ER) | payer OTHER ==
[~2017-10-02] VITALS: Ht 157.4 cm; Wt 82.1 kg
[2017-10-02] MEDS ORDERED: CYCLOBENZAPRINE10 MG PO (16:44)
[2017-10-02 17:09] VITALS: BP 179/74
== END 2017-10-02 17:51 | disposition home or self-care (01) ==
LOC: ED 14:51
DX: S16.1XXA Strain of muscle, fascia and tendon at neck level, initial encounter (principal); R51 Headache; E11.9 Type 2 diabetes mellitus without complications; Z91.041 Radiographic dye allergy status; Z88.2 Allergy status to sulfonamides; Z88.1 Allergy status to other antibiotic agents; Z88.8 Allergy status to other drugs, medicaments and biological substances; Z79.899 Other long term (current) drug therapy; Z79.82 Long term (current) use of aspirin; Z87.891 Personal history of nicotine dependence; V43.92XA Unspecified car occupant injured in collision with other type car in traffic accident, initial encounter; Y93.89 Activity, other specified; Y92.413 State road as the place of occurrence of the external cause; Y99.8 Other external cause status

== ENCOUNTER → 2017-10-12 | Outpatient (CLI) | payer OTHER ==
--- NOTE | ~2017-10-12 | ST ---
[place], [place] EXERCISE STRESS TEST REPORT NAME: NIKKI AVALOS UNIT #: [id number] ROOM: DOCTOR: RUBINA COTE [facility] BIRTHDATE: [birth year] DOS: 10/12/2017 LEXISCAN WITH CARDIOLITE The patient received Lexiscan 0.4 over 10 seconds. Heart rate is 80. No ischemic change on the EKG. Isotope was injected. Myocardial perfusion scan to follow. No complication noted. The patient was explained that we will follow subsequently after the myocardial perfusion scan. NELLY CESPEDES MD CM:STRESS:EXERCISE STRESS TEST REPORT [id number] [facility]
== END | disposition home or self-care (01) ==
LOC: CARD 02:47
DX: I25.9 Chronic ischemic heart disease, unspecified (principal); I10 Essential (primary) hypertension; E78.5 Hyperlipidemia, unspecified; R53.81 Other malaise

== ENCOUNTER → 2017-10-22 | Outpatient (CLI) | payer OTHER ==
[2017-10-22 14:08] LABS: BILIRUBIN NEGATIVE (NEGATIVE); BLOOD TRACE-INTACT (NEGATIVE); CLARITY SL CLOUDY (CLEAR); COLOR YELLOW (YELLOW); GLUCOSE 3+ (NEGATIVE); KETONE NEGATIVE (NEGATIVE); LEUKO ESTERASE NEGATIVE (NEGATIVE); NITRITE NEGATIVE (NEGATIVE); PH 5.5 (5.0-9.0); SPECIFIC GRAVITY 1.015 (1.005-1.030); UROBILINOGEN 0.2 E.U./dl (0.2-1.0)
[2017-10-22 14:15] LABS: BACTERIA 1+; RBC 0-2 rbc/hpf (0-2)
[2017-10-22 14:24] LABS: BILIRUBIN, DIRECT 0.2 mg/dL (0.0-0.2); CREATININE 1.21 mg/dL (0.55-1.02); POTASSIUM 3.5 mmol/L (3.5-5.1); TOTAL PROTEIN 8.2 gm/dL (6.4-8.2)
[2017-10-22 14:25] LABS: FREE T4 1.05 ng/dl (0.76-1.46)
[2017-10-22 14:30] LABS: THYROID STIM HORMONE (HS) 2.97 uIU/ml (0.358-4.75)
[2017-10-22 14:50] LABS: VITAMIN D, 25-HYDROXY 46.2 ng/mL (30-100)
== END | disposition home or self-care (01) ==
LOC: LAB 13:37
PROVIDERS: Internal Medicine
DX: E78.5 Hyperlipidemia, unspecified (principal); E55.9 Vitamin D deficiency, unspecified; E11.65 Type 2 diabetes mellitus with hyperglycemia; E04.9 Nontoxic goiter, unspecified

== ENCOUNTER 2018-05-31 22:29 | Inpatient (IN) | payer OTHER ==
[~2018-05-31] VITALS: Ht 157.5 cm; Wt 78.7 kg
--- NOTE | ~2018-05-31 | EKG ---
[place], [place] ELECTROCARDIOGRAM REPORT NAME: NIKKI AVALOS UNIT #: [id number] ROOM: [facility] DOCTOR: EPIPHANY DRAFT REPORT BIRTHDATE: [birth year] [facility] Test Date: 2018-05-31 Test Time: 23:40:00 Pat Name: NIKKI AVALOS Department: Room: [facility] Gender: F Research And Development Scientist: Nimesh Thomas : 1945 Requested By: FLAQUITA ROBERTS Order Number: [id number] Reading MD: Nimesh Odell MD Measurements Intervals [place] Rate: 71 P: -50 CT: 200 QRS: -11 QRSD: 86 T: 150 QT: 420 QTc: 457 Interpretive Statements Sinus or ectopic atrial rhythm LVH with secondary repolarization abnormality Compared to ECG 11/30/2017 21:23:44 Ectopic atrial rhythm now present Left ventricular hypertrophy now present Atrial premature complex(es) no longer present Myocardial infarct finding still present Electronically Signed On 06-01-2018 7:23:47 PST by Nimesh Odell MD CM:EKGRPT:ELECTROCARDIOGRAM REPORT [id number] FLAQUITA ROBERTS MD EPIPHANY DRAFT REPORT FLAQUITA ROBERTS MD
[~2018-05-31 22:29] MED LIST changes: -LEXAPRO10 MG PO; +LEXAPRO20 MG PO
[2018-05-31 22:32] VITALS: BP 234/123
[2018-05-31 22:43] VITALS: BP 200/122
[2018-05-31 23:42] LABS: BASO % 0.4 % (0.0-1.0); EOS # 0.1 10*3/uL (0.0-0.4); EOS % 1.2 % (1.0-4.0); HEMATOCRIT 49.1 % (37.0-47.0); HEMOGLOBIN 16.8 g/dl (12.0-16.0); LYMPH # 3.4 10*3/uL (1.3-4.4); LYMPH % 31.9 % (27.0-41.0); MEAN CELL VOLUME 95.3 fl (81.0-99.0); MEAN CORPUSCULAR HGB 32.6 pg (27.0-31.0); MEAN CORPUSCULAR HGB CONC 34.2 g/dl (33.0-37.0); MEAN PLATELET VOLUME 9.8 fl (9.6-12.3); MONO # 0.7 10*3/uL (0.1-1.0); MONO % 6.5 % (3.0-9.0); NEUT # 6.3 10*3/uL (2.3-7.9); NEUT % 59.6 % (47.0-73.0); PLATELET COUNT AUTOMATED 225 10*3/uL (130-400); RED BLOOD COUNT 5.15 10*6/uL (4.10-5.10); RED CELL DISTRI WIDTH 12.2 % (0-14.5); WHITE BLOOD COUNT 10.6 10*3/uL (4.8-10.8)
[2018-05-31 23:45] LABS: ACT PARTIAL THROMBO TIME 22.2 SECONDS (20.8-31.5); INTERNATIONAL NORM RATIO 0.9 (2.0-3.5)
[2018-05-31 23:51] LABS: ALBUMIN 3.9 gm/dl (3.1-4.5); ALKALINE PHOSPHATASE 117 U/L (45-117); BUN 11 mg/dl (7-24); CHLORIDE 107 mmol/L (98-107); CREATININE 0.93 mg/dL (0.55-1.02); POTASSIUM 3.8 mmol/L (3.5-5.1); SGOT/AST 15 IU/L (3-35); SGPT/ALT 20 U/L (12-78); SODIUM 141 mmol/L (136-145)
--- NOTE | 2018-05-31 23:55 | NUR ---
DR KNOX AWARE OF BLOOD PRESSURE 210/89. TRITRATED CARDENE GTT TO 7.5MG/HR AT THIS TIME
[2018-05-31 23:58] LABS: TROPONIN I 0.065 ng/ml (<0.045)
--- NOTE | 2018-05-31 23:58 | NUR ---
DR KNOX AWARE OF CRITICAL TROPONIN 0.065
[2018-06-01] VITALS (10 sets, daily range): BP systolic 112–182; BP diastolic 56–88
[2018-06-01 01:15] LABS: BILIRUBIN NEGATIVE (NEGATIVE); BLOOD NEGATIVE (NEGATIVE); CLARITY CLEAR (CLEAR); COLOR YELLOW (YELLOW); GLUCOSE 3+ (NEGATIVE); KETONE NEGATIVE (NEGATIVE); LEUKO ESTERASE NEGATIVE (NEGATIVE); NITRITE NEGATIVE (NEGATIVE); PH 6.5 (5.0-9.0); UROBILINOGEN 0.2 E.U./dl (0.2-1.0)
[2018-06-01 01:22] LABS: URINE AMPHETAMINES < 1000 (1000ng/ml); URINE BARBITURATES < 200 (200ng/ml); URINE BENZODIAZEPINES < 200 (200ng/ml); URINE CANNABINOIDS (THC) < 50 (50ng/ml); URINE COCAINE < 300 (300ng/ml); URINE METHADONE < 300 (300ng/ml); URINE OPIATES < 300 (300ng/ml)
[2018-06-01 01:28] LABS: URINE PHENCYCLIDINE < 25 (25ng/ml)
--- NOTE | 2018-06-01 01:40 | NUR ---
A 72, admitted to [facility], under the services of MELONIE Anguiano DO with a diagnosis of HTN CRISIS. Chief complaint is LADD. Patient arrived via ambulatory from ER. Monitor applied. Initial assessment completed. Vital signs taken and recorded. MELONIE ANGUIANO DO notified of admission to the unit. Orders received. See assessment for past medical history, medications and allergies. Patient and/or family oriented to unit. [facility] visitation policy reviewed. Clothing/patient valuable form completed. MOHINDER GIBBS
--- NOTE | 2018-06-01 02:15 | NUR ---
CARDENE WAS TITRATED DOWN TO 5MG.
--- NOTE | 2018-06-01 02:19 | NUR ---
NO LIST OF HOME MEDICATIONS AVAILABLE AT THIS TIME BUT DID CONFIRM THAT PT PHARMACY IS [facility] ([facility]). MEDICATIONS TO BE CONFIRMED IN AM.
--- NOTE | 2018-06-01 02:37 | NUR ---
CARDENE GTT HAS BEEN TITRATED OFF. PT DOZING ON HER LT SIDE. NO COMPLAINTS AT PRESENT TIME.
--- NOTE | 2018-06-01 03:23 | NUR ---
DR ELKINS NOTIFIED OF ELEVATED TROPONIN 0.078
--- NOTE | 2018-06-01 08:00 | NUR ---
PT AAOX3. RESP EASY. PT IS C/O HEADACHE IS STARTING AGAIN. WILL NOTIFY DOCTOR. NO OTHER VOICED COMPLAINTS AT THIS TIME. WILL CONTINUE TO MONITOR PT.
--- NOTE | 2018-06-01 09:10 | NUR ---
SPOKE WITH [facility] PHARMACIST R/T HOME MED. LIST. DR WOOD UPDATED.
[2018-06-01] MEDS ORDERED: NEURONTIN300 MG PO (09:30)
[2018-06-01] MEDS ORDERED: AMARYL4 MG PO (09:32)
[2018-06-01] MEDS ORDERED: OXYCODONE HCL10 M1 PO (09:37)
[2018-06-01] MEDS ORDERED: NATURE'S BLEND F1 MG PO (09:38)
[2018-06-01] MEDS ORDERED: FENOFIBRATE54 MG PO (09:39)
[2018-06-01] MEDS ORDERED: VASCEPA1 G1 PO (09:39)
[2018-06-01] MEDS ORDERED: FARXIGA10 M1 PO (09:40)
[2018-06-01] MEDS ORDERED: OZEMPIC1 MG/0.75 SQ (09:40)
[2018-06-01] MEDS ORDERED: BASAG SOL SQ (09:41)
--- NOTE | 2018-06-01 10:27 | NUR ---
DR RUBIO IN TO SEE PT. UPDATED HIM ON PT'S CONDITION. NEW ORDERS RECEIVED.
--- NOTE | 2018-06-01 11:30 | NUR ---
HEADACHE CONTINUES RATE 5/10 MEDICATED WITH OXY IR ORDERED WILL MONITOR EFFECTS GEO HUTCHINSON OVCT STUDENT NURSE
--- NOTE | 2018-06-01 12:00 | NUR ---
PT REMOVED FROM MONITOR TAKEN TO MRI IN STABLE CONDITION VIA WHEELCHAIR GEO H[facility]CHINSON OVCT STUDENT NURSE
--- NOTE | 2018-06-01 12:15 | NUR ---
PT TO MRI VIA WC.
--- NOTE | 2018-06-01 12:20 | NUR ---
PT MEDICATED WITH TORADOL ORDERED BY DOCTOR FOR CO HEADACHE RATE 11/14 WILL MONITOR EFFECTS GEO HUTCHINSON OVCT STUDENT NURSE
--- NOTE | 2018-06-01 12:38 | NUR ---
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
--- NOTE | 2018-06-01 15:23 | NUR ---
PT C/O BLURRY VISION. MANUAL BP 142/68.
--- NOTE | 2018-06-01 18:57 | NUR ---
CHART CHECK COMPLETE.
--- NOTE | 2018-06-01 19:32 | NUR ---
FAMILY MEMBERS VISIT.
[2018-06-02] VITALS (7 sets, daily range): BP systolic 120–162; BP diastolic 55–90
[2018-06-02 05:15] LABS: BASO % 0.5 % (0.0-1.0); EOS # 0.2 10*3/uL (0.0-0.4); EOS % 1.7 % (1.0-4.0); HEMATOCRIT 43.1 % (37.0-47.0); HEMOGLOBIN 14.8 g/dl (12.0-16.0); LYMPH # 3.8 10*3/uL (1.3-4.4); LYMPH % 44.3 % (27.0-41.0); MEAN CELL VOLUME 94.5 fl (81.0-99.0); MEAN CORPUSCULAR HGB 32.5 pg (27.0-31.0); MEAN CORPUSCULAR HGB CONC 34.3 g/dl (33.0-37.0); MONO # 0.5 10*3/uL (0.1-1.0); NEUT # 4.1 10*3/uL (2.3-7.9); NEUT % 47.3 % (47.0-73.0); PLATELET COUNT AUTOMATED 205 10*3/uL (130-400); RED BLOOD COUNT 4.56 10*6/uL (4.10-5.10); RED CELL DISTRI WIDTH 12.3 % (0-14.5); WHITE BLOOD COUNT 8.7 10*3/uL (4.8-10.8)
[2018-06-02 05:35] LABS: ALKALINE PHOSPHATASE 91 U/L (45-117); BUN 15 mg/dl (7-24); CHOLESTEROL 118 mg/dL (<200); CREATININE 0.86 mg/dL (0.55-1.02); HDL CHOLESTEROL 32 mg/dl (40-60); LDL CHOLESTEROL 49 mg/dL (9-159); PHOSPHOROUS 3.3 mg/dL (2.5-4.9); SGOT/AST 14 IU/L (3-35); SGPT/ALT 14 U/L (12-78); TOTAL PROTEIN 6.4 gm/dL (6.4-8.2); TRIGLYCERIDES 183 mg/dl (<150); VLDL CHOLESTEROL 37 mg/dL (6-40)
[2018-06-02 05:36] LABS: FREE T4 1.05 ng/dl (0.76-1.46)
[2018-06-02 05:37] LABS: CHLORIDE 110 mmol/L (98-107); POTASSIUM 3.6 mmol/L (3.5-5.1); SODIUM 143 mmol/L (136-145)
--- NOTE | 2018-06-02 08:59 | NUR ---
PT RESTING. RESP EASY. VSS. PT DENIES LADD BUT CONTINUES TO HAVE BURRED VISION. PT DENIES OTHER COMPLAINTS. NO ACUTE DISTRESS NOTED AT THIS TIME. WILL CONTINUE TO MONITOR PT.
--- NOTE | 2018-06-02 11:10 | NUR ---
PT INSTRUCTED ON BED ASSIGNMENT CHANGE TO 526. WHEN I ASKED PT IF SHE WOULD LIKE ME TO NOTIFY A FAMILY MEMBER OF BED CHANGE SHE SAID NO.
--- NOTE | 2018-06-02 11:20 | NUR ---
PT TRANSFERED TO 526 VIA WC.
[2018-06-03] VITALS: BP 160/59
--- NOTE | 2018-06-03 06:00 | NUR ---
PATIENT BGM WAS 60. PATIENT GIVEN APPLE JUICE AND CRACKERS. WILL REASSESS BS AT 0645. PATIENT IS COLD AND DIAPHORETIC BUT DENIES ANY FURTHER ISSUES.
[2018-06-03 06:23] LABS: BASO # 0.1 10*3/uL (0.0-0.1); BASO % 0.5 % (0.0-1.0); EOS # 0.1 10*3/uL (0.0-0.4); EOS % 1.3 % (1.0-4.0); HEMATOCRIT 43.8 % (37.0-47.0); HEMOGLOBIN 15.2 g/dl (12.0-16.0); LYMPH # 4.3 10*3/uL (1.3-4.4); MEAN CORPUSCULAR HGB 32.6 pg (27.0-31.0); MEAN CORPUSCULAR HGB CONC 34.7 g/dl (33.0-37.0); MEAN PLATELET VOLUME 9.8 fl (9.6-12.3); MONO # 0.8 10*3/uL (0.1-1.0); MONO % 7.9 % (3.0-9.0); NEUT # 4.5 10*3/uL (2.3-7.9); PLATELET COUNT AUTOMATED 218 10*3/uL (130-400); RED BLOOD COUNT 4.66 10*6/uL (4.10-5.10); RED CELL DISTRI WIDTH 12.3 % (0-14.5); WHITE BLOOD COUNT 9.8 10*3/uL (4.8-10.8)
[2018-06-03 06:32] LABS: ALBUMIN 3.1 gm/dl (3.1-4.5); ALKALINE PHOSPHATASE 92 U/L (45-117); BUN 15 mg/dl (7-24); CHLORIDE 106 mmol/L (98-107); CREATININE 0.83 mg/dL (0.55-1.02); POTASSIUM 3.3 mmol/L (3.5-5.1); SGOT/AST 16 IU/L (3-35); SGPT/ALT 16 U/L (12-78); SODIUM 142 mmol/L (136-145); TOTAL PROTEIN 6.9 gm/dL (6.4-8.2)
--- NOTE | 2018-06-03 06:53 | NUR ---
PATIENTS BGM WAS RECHECKED. RESULT WAS 117. NO CONCERNS AT THIS TIME.
[2018-06-03 08:00] VITALS: BP 162/66
--- NOTE | 2018-06-03 08:37 | NUR ---
PT RESTING IN BED. NO DISTRESS NOTED. NO VOICED C/O. WILL MONITOR
[2018-06-03 12:00] VITALS: BP 164/70
--- NOTE | 2018-06-03 15:00 | NUR ---
Discharge instructions reviewed with patient/family. Patient receptive and verbalizes understanding. Follow-up care arranged. Written instructions given to patient/family. CARMENCITA LOZANO
== END 2018-06-03 14:50 | disposition home or self-care (01) | DRG 304 ==
LOC: ED 22:29 → EDHOLD 06-01 00:42 → ICCU 06-01 00:54 → 5E 06-02 11:04
PROVIDERS: Emergency Medicine; Emergency Medicine Emergency Medical Services; Family Medicine; ADMIT Internal Medicine
DX: I16.1 Hypertensive emergency (principal); G93.41 Metabolic encephalopathy; I24.8 Other forms of acute ischemic heart disease; E44.0 Moderate protein-calorie malnutrition; R11.2 Nausea with vomiting, unspecified; R81 Glycosuria; N06.9 Isolated proteinuria with unspecified morphologic lesion; R79.82 Elevated C-reactive protein (CRP); R74.8 Abnormal levels of other serum enzymes; K21.9 Gastro-esophageal reflux disease without esophagitis; F32.9 Major depressive disorder, single episode, unspecified; E78.5 Hyperlipidemia, unspecified; E11.65 Type 2 diabetes mellitus with hyperglycemia; I10 Essential (primary) hypertension; E11.40 Type 2 diabetes mellitus with diabetic neuropathy, unspecified; M15.9 Polyosteoarthritis, unspecified; E55.9 Vitamin D deficiency, unspecified; G89.29 Other chronic pain; G47.33 Obstructive sleep apnea (adult) (pediatric); E53.8 Deficiency of other specified B group vitamins; I65.23 Occlusion and stenosis of bilateral carotid arteries; E87.8 Other disorders of electrolyte and fluid balance, not elsewhere classified; H53.8 Other visual disturbances; M48.07 Spinal stenosis, lumbosacral region; E78.1 Pure hyperglyceridemia; I77.810 Thoracic aortic ectasia; Z79.4 Long term (current) use of insulin; Z88.2 Allergy status to sulfonamides; Z88.8 Allergy status to other drugs, medicaments and biological substances; Z88.1 Allergy status to other antibiotic agents; Z91.041 Radiographic dye allergy status; Z85.528 Personal history of other malignant neoplasm of kidney; Z86.73 Personal history of transient ischemic attack (TIA), and cerebral infarction without residual deficits; Z90.49 Acquired absence of other specified parts of digestive tract; Z98.51 Tubal ligation status; Z87.891 Personal history of nicotine dependence; Z83.3 Family history of diabetes mellitus; Z82.49 Family history of ischemic heart disease and other diseases of the circulatory system; Z79.82 Long term (current) use of aspirin; Z79.899 Other long term (current) drug therapy; Z68.31 Body mass index [BMI] 31.0-31.9, adult

== ENCOUNTER 2018-09-06 19:27 | Emergency (ER) | payer OTHER ==
[~2018-09-06] VITALS: Ht 157.4 cm; Wt 80.3 kg
[~2018-09-06 19:27] MED LIST changes: +AMARYL4 MG PO; +BASAG SOL SQ; +FARXIGA10 M1 PO; +FENOFIBRATE54 MG PO; +OXYCODONE HCL10 M1 PO; +OZEMPIC1 MG/0.75 SQ; +VASCEPA1 G1 PO
== END 2018-09-06 20:38 | disposition home or self-care (01) ==
LOC: ED 19:27
DX: E11.40 Type 2 diabetes mellitus with diabetic neuropathy, unspecified (principal); I10 Essential (primary) hypertension; K21.9 Gastro-esophageal reflux disease without esophagitis; M19.90 Unspecified osteoarthritis, unspecified site; E78.5 Hyperlipidemia, unspecified; Z91.041 Radiographic dye allergy status; Z88.2 Allergy status to sulfonamides; Z88.1 Allergy status to other antibiotic agents; Z88.8 Allergy status to other drugs, medicaments and biological substances; Z79.899 Other long term (current) drug therapy; Z79.82 Long term (current) use of aspirin; Z87.891 Personal history of nicotine dependence

== ENCOUNTER → 2019-01-11 | Outpatient (CLI) | payer OTHER ==
[2019-01-11 14:49] LABS: BUN 9 mg/dl (7-24); CREATININE 0.75 mg/dL (0.55-1.02)
== END | disposition home or self-care (01) ==
LOC: LAB 00:29 → CT 15:00 → LAB 15:00
PROVIDERS: Urology
DX: C64.9 Malignant neoplasm of unspecified kidney, except renal pelvis (principal); I71.9 Aortic aneurysm of unspecified site, without rupture; K57.90 Diverticulosis of intestine, part unspecified, without perforation or abscess without bleeding; R91.8 Other nonspecific abnormal finding of lung field; J43.9 Emphysema, unspecified; Z90.5 Acquired absence of kidney

== ENCOUNTER → 2019-02-26 | Outpatient (CLI) | payer OTHER | END | disposition home or self-care (01) | LOC: LAB 13:48 | DX: D72.829 Elevated white blood cell count, unspecified (principal) ==

== ENCOUNTER 2019-04-24 14:12 | Emergency (ER) | payer OTHER ==
[~2019-04-24] VITALS: Ht 160 cm; Wt 80.3 kg
[2019-04-24 16:06] VITALS: BP 152/70
== END 2019-04-24 16:17 | disposition home or self-care (01) ==
LOC: ED 14:12
DX: I10 Essential (primary) hypertension (principal); J44.9 Chronic obstructive pulmonary disease, unspecified; E78.00 Pure hypercholesterolemia, unspecified; E11.40 Type 2 diabetes mellitus with diabetic neuropathy, unspecified; K21.9 Gastro-esophageal reflux disease without esophagitis; Z91.041 Radiographic dye allergy status; Z88.2 Allergy status to sulfonamides; Z88.1 Allergy status to other antibiotic agents; Z88.6 Allergy status to analgesic agent; Z88.8 Allergy status to other drugs, medicaments and biological substances; Z79.899 Other long term (current) drug therapy; Z79.82 Long term (current) use of aspirin; Z79.4 Long term (current) use of insulin; Z86.73 Personal history of transient ischemic attack (TIA), and cerebral infarction without residual deficits; Z87.891 Personal history of nicotine dependence

== ENCOUNTER 2019-06-05 13:50 | Emergency (ER) | payer OTHER ==
[~2019-06-05] VITALS: Ht 157.4 cm; Wt 76.2 kg
[2019-06-05 14:22] LABS: BASO # 0.1 10*3/uL (0.0-0.1); BASO % 0.5 % (0.0-1.0); EOS # 0.1 10*3/uL (0.0-0.4); EOS % 0.7 % (1.0-4.0); HEMATOCRIT 47.8 % (37.0-47.0); HEMOGLOBIN 16.5 g/dl (12.0-16.0); LYMPH # 2.4 10*3/uL (1.3-4.4); LYMPH % 24.2 % (27.0-41.0); MEAN CELL VOLUME 92.3 fl (81.0-99.0); MEAN CORPUSCULAR HGB 31.9 pg (27.0-31.0); MEAN CORPUSCULAR HGB CONC 34.5 g/dl (33.0-37.0); MEAN PLATELET VOLUME 10.4 fl (9.6-12.3); MONO # 0.6 10*3/uL (0.1-1.0); MONO % 5.6 % (3.0-9.0); NEUT # 6.8 10*3/uL (2.3-7.9); NEUT % 68.6 % (47.0-73.0); PLATELET COUNT AUTOMATED 203 10*3/uL (130-400); RED BLOOD COUNT 5.18 10*6/uL (4.10-5.10); RED CELL DISTRI WIDTH 12.7 % (0-14.5); WHITE BLOOD COUNT 9.9 10*3/uL (4.8-10.8)
[2019-06-05 14:33] LABS: ACT PARTIAL THROMBO TIME 24.7 SECONDS (20.0-32.1); INTERNATIONAL NORM RATIO 0.9 (2.0-3.5)
[2019-06-05 14:39] LABS: ALBUMIN 3.4 gm/dl (3.1-4.5); CREATININE 1.15 mg/dL (0.55-1.02); POTASSIUM 3.1 mmol/L (3.5-5.1); TOTAL PROTEIN 7.1 gm/dL (6.4-8.2)
[2019-06-05 14:46] LABS: TROPONIN I 0.048 ng/ml (<0.045)
[2019-06-05 16:22] VITALS: BP 161/87
== END 2019-06-05 18:01 | disposition home or self-care (01) ==
LOC: ED 13:50
PROVIDERS: Emergency Medicine
DX: R20.0 Anesthesia of skin (principal); M54.6 Pain in thoracic spine; N64.4 Mastodynia; R79.1 Abnormal coagulation profile; M19.90 Unspecified osteoarthritis, unspecified site; I10 Essential (primary) hypertension; E78.5 Hyperlipidemia, unspecified; K21.9 Gastro-esophageal reflux disease without esophagitis; E11.43 Type 2 diabetes mellitus with diabetic autonomic (poly)neuropathy; J44.9 Chronic obstructive pulmonary disease, unspecified; E78.00 Pure hypercholesterolemia, unspecified; Z87.891 Personal history of nicotine dependence; Z86.718 Personal history of other venous thrombosis and embolism

== ENCOUNTER → 2019-06-15 | Outpatient (CLI) | payer OTHER ==
[~2019-06-15] MED LIST changes: +PROAIR HFA8.5 GM INH; +TESSALON PERLE100 M1 PO; +ZOFRAN4 MG PO
[2019-06-15 12:50] LABS: BUN 8 mg/dl (7-24); CHLORIDE 105 mmol/L (98-107); POTASSIUM 3.6 mmol/L (3.5-5.1); SODIUM 141 mmol/L (136-145)
== END ==
LOC: LAB 11:07
PROVIDERS: Internal Medicine Cardiovascular Disease
DX: I10 Essential (primary) hypertension (principal); R07.9 Chest pain, unspecified; N20.0 Calculus of kidney; Z90.49 Acquired absence of other specified parts of digestive tract

== ENCOUNTER → 2019-06-21 | Outpatient (CLI) | payer OTHER | END | disposition home or self-care (01) | LOC: CT 11:00 | DX: I71.2 Thoracic aortic aneurysm, without rupture (principal) ==

== ENCOUNTER 2019-07-05 15:49 | Emergency (ER) | payer OTHER ==
[~2019-07-05] VITALS: Ht 157.4 cm; Wt 76.2 kg
[~2019-07-05 15:49] MED LIST changes: -PROAIR HFA8.5 GM INH; -TESSALON PERLE100 M1 PO; -ZOFRAN4 MG PO
[2019-07-05 15:55] VITALS: BP 163/93
[2019-07-05 16:49] LABS: BASO % 0.5 % (0.0-1.0); EOS # 0.1 10*3/uL (0.0-0.4); EOS % 1.1 % (1.0-4.0); HEMOGLOBIN 16.9 g/dl (12.0-16.0); LYMPH # 0.8 10*3/uL (1.3-4.4); LYMPH % 9.7 % (27.0-41.0); MEAN CELL VOLUME 93.5 fl (81.0-99.0); MEAN CORPUSCULAR HGB 32.3 pg (27.0-31.0); MEAN CORPUSCULAR HGB CONC 34.5 g/dl (33.0-37.0); MEAN PLATELET VOLUME 10.4 fl (9.6-12.3); MONO # 0.7 10*3/uL (0.1-1.0); NEUT # 6.5 10*3/uL (2.3-7.9); NEUT % 79.5 % (47.0-73.0); PLATELET COUNT AUTOMATED 187 10*3/uL (130-400); RED BLOOD COUNT 5.24 10*6/uL (4.10-5.10); RED CELL DISTRI WIDTH 12.7 % (0-14.5); WHITE BLOOD COUNT 8.2 10*3/uL (4.8-10.8)
[2019-07-05 17:10] LABS: ALBUMIN 3.6 gm/dl (3.1-4.5); ALKALINE PHOSPHATASE 133 U/L (45-117); BUN 7 mg/dl (7-24); CHLORIDE 105 mmol/L (98-107); CREATININE 1.03 mg/dL (0.55-1.02); POTASSIUM 3.2 mmol/L (3.5-5.1); SGOT/AST 31 IU/L (3-35); SGPT/ALT 28 U/L (12-78); SODIUM 141 mmol/L (136-145); TOTAL PROTEIN 7.7 gm/dL (6.4-8.2)
[2019-07-05 17:51] LABS: BACTERIA TRACE; BILIRUBIN NEGATIVE (NEGATIVE); BLOOD TRACE-INTACT (NEGATIVE); CLARITY CLEAR (CLEAR); COLOR STRAW (YELLOW); EPITHELIAL CELLS 0-2; GLUCOSE 2+ (NEGATIVE); KETONE NEGATIVE (NEGATIVE); LEUKO ESTERASE NEGATIVE (NEGATIVE); NITRITE NEGATIVE (NEGATIVE); PH 7.5 (5.0-9.0); RBC 0-2 rbc/hpf (0-2); SPECIFIC GRAVITY 1.015 (1.005-1.030); UROBILINOGEN 0.2 E.U./dl (0.2-1.0); WBC 0-2 wbc/hpf (0-5)
[2019-07-05] MEDS ORDERED: ZOFRAN4 MG PO (18:12)
[2019-07-05] MEDS ORDERED: PROAIR HFA8.5 GM INH (18:12)
[2019-07-05] MEDS ORDERED: TESSALON PERLE100 M1 PO (18:12)
== END 2019-07-05 18:15 | disposition home or self-care (01) ==
LOC: ED 15:49
PROVIDERS: Physician Assistant
DX: B34.9 Viral infection, unspecified (principal); E11.9 Type 2 diabetes mellitus without complications; J44.9 Chronic obstructive pulmonary disease, unspecified; K21.9 Gastro-esophageal reflux disease without esophagitis; I10 Essential (primary) hypertension; E78.00 Pure hypercholesterolemia, unspecified; Z91.041 Radiographic dye allergy status; Z88.2 Allergy status to sulfonamides; Z88.1 Allergy status to other antibiotic agents; Z88.6 Allergy status to analgesic agent; Z88.8 Allergy status to other drugs, medicaments and biological substances; Z79.899 Other long term (current) drug therapy; Z79.82 Long term (current) use of aspirin; Z79.4 Long term (current) use of insulin; Z90.49 Acquired absence of other specified parts of digestive tract; Z87.891 Personal history of nicotine dependence

== ENCOUNTER → 2019-09-24 | Outpatient (CLI) | payer OTHER ==
[~2019-09-24] MED LIST changes: +PROAIR HFA8.5 GM INH; +TESSALON PERLE100 M1 PO; +ZOFRAN4 MG PO
== END | disposition home or self-care (01) ==
LOC: LAB 15:27
DX: L65.9 Nonscarring hair loss, unspecified (principal)

== ENCOUNTER → 2019-11-29 | Outpatient (CLI) | payer OTHER ==
[2019-11-29 09:56] LABS: ALBUMIN 3.3 gm/dl (3.1-4.5); ALKALINE PHOSPHATASE 135 U/L (45-117); BILIRUBIN, DIRECT 0.2 mg/dL (0.0-0.2); BUN 9 mg/dl (7-24); CHLORIDE 103 mmol/L (98-107); CHOLESTEROL 151 mg/dL (<200); CREATININE 0.86 mg/dL (0.55-1.02); FREE T4 1.27 ng/dl (0.76-1.46); HDL CHOLESTEROL 35 mg/dl (40-60); LDL CHOLESTEROL 67 mg/dL (9-159); POTASSIUM 2.9 mmol/L (3.5-5.1); SGOT/AST 14 IU/L (3-35); SGPT/ALT 20 U/L (12-78); SODIUM 137 mmol/L (136-145); TOTAL PROTEIN 7.3 gm/dL (6.4-8.2); TRIGLYCERIDES 246 mg/dl (<150); VLDL CHOLESTEROL 49 mg/dL (6-40)
[2019-11-29 10:37] LABS: VITAMIN D, 25-HYDROXY 40.4 ng/mL (30-100)
[2019-11-29 10:43] LABS: BILIRUBIN NEGATIVE (NEGATIVE); BLOOD NEGATIVE (NEGATIVE); CLARITY SL CLOUDY (CLEAR); COLOR YELLOW (YELLOW); GLUCOSE 3+ (NEGATIVE); KETONE NEGATIVE (NEGATIVE); LEUKO ESTERASE TRACE (NEGATIVE); NITRITE NEGATIVE (NEGATIVE); PH 6.5 (5.0-9.0); SPECIFIC GRAVITY 1.005 (1.005-1.030); UROBILINOGEN 0.2 E.U./dl (0.2-1.0)
== END | disposition home or self-care (01) ==
LOC: LAB 01:30
PROVIDERS: Internal Medicine
DX: E11.65 Type 2 diabetes mellitus with hyperglycemia (principal); E78.5 Hyperlipidemia, unspecified; E04.9 Nontoxic goiter, unspecified; E55.9 Vitamin D deficiency, unspecified; E11.40 Type 2 diabetes mellitus with diabetic neuropathy, unspecified

== ENCOUNTER → 2020-01-24 | Outpatient (CLI) | payer OTHER | END | disposition home or self-care (01) | LOC: CT 13:00 | PROVIDERS: ATTEND Urology | DX: C64.9 Malignant neoplasm of unspecified kidney, except renal pelvis (principal) ==

== ENCOUNTER → 2020-03-23 | Outpatient (CLI) | payer OTHER | END | disposition home or self-care (01) | LOC: COVID19 13:53 | PROVIDERS: ATTEND Nurse Practitioner Family | DX: U07.1 COVID-19 (principal) ==

== ENCOUNTER 2020-04-04 14:33 | Emergency (ER) | payer OTHER ==
[~2020-04-04] VITALS: Ht 160 cm; Wt 90.7 kg
[2020-04-04 15:21] LABS: BASO % 0.4 % (0.0-1.0); EOS # 0.1 10*3/uL (0.0-0.4); HEMATOCRIT 43.2 % (37.0-47.0); LYMPH # 2.2 10*3/uL (1.3-4.4); LYMPH % 30.8 % (27.0-41.0); MEAN CELL VOLUME 86.9 fl (81.0-99.0); MEAN CORPUSCULAR HGB 30.6 pg (27.0-31.0); MEAN CORPUSCULAR HGB CONC 35.2 g/dl (33.0-37.0); MEAN PLATELET VOLUME 9.4 fl (9.6-12.3); MONO # 0.5 10*3/uL (0.1-1.0); MONO % 7.3 % (3.0-9.0); NEUT # 4.2 10*3/uL (2.3-7.9); NEUT % 60.4 % (47.0-73.0); PLATELET COUNT AUTOMATED 395 10*3/uL (130-400); RED BLOOD COUNT 4.97 10*6/uL (4.10-5.10); RED CELL DISTRI WIDTH 11.8 % (0-14.5)
[2020-04-04 15:37] LABS: ACT PARTIAL THROMBO TIME 28.5 SECONDS (20.0-32.1)
[2020-04-04 15:41] LABS: ALBUMIN 2.9 gm/dl (3.1-4.5); ALKALINE PHOSPHATASE 93 U/L (45-117); BUN 8 mg/dl (7-24); CHLORIDE 105 mmol/L (98-107); CREATININE 0.92 mg/dL (0.55-1.02); POTASSIUM 2.6 mmol/L (3.5-5.1); SGOT/AST 11 IU/L (3-35); SGPT/ALT 13 U/L (12-78); SODIUM 138 mmol/L (136-145); TOTAL PROTEIN 7.2 gm/dL (6.4-8.2)
[2020-04-04 15:42] LABS: TROPONIN I 0.113 ng/ml (<0.045)
[2020-04-04 17:04] VITALS: BP 181/94
== END 2020-04-04 19:08 | disposition home or self-care (01) ==
LOC: ED 14:33
PROVIDERS: Emergency Medicine
DX: R06.00 Dyspnea, unspecified (principal); Z91.041 Radiographic dye allergy status; Z88.2 Allergy status to sulfonamides; Z88.8 Allergy status to other drugs, medicaments and biological substances; Z79.899 Other long term (current) drug therapy; Z79.82 Long term (current) use of aspirin; Z79.4 Long term (current) use of insulin

== ENCOUNTER 2020-09-02 22:32 | Emergency (ER) | payer OTHER ==
[~2020-09-02] VITALS: Wt 76.2 kg
[2020-09-02 23:01] LABS: BASO # 0.1 10*3/uL (0.0-0.1); BASO % 0.6 % (0.0-1.0); EOS # 0.2 10*3/uL (0.0-0.4); EOS % 1.9 % (1.0-4.0); HEMATOCRIT 48.7 % (37.0-47.0); LYMPH # 3.5 10*3/uL (1.3-4.4); LYMPH % 37.8 % (27.0-41.0); MEAN CELL VOLUME 91.4 fl (81.0-99.0); MEAN CORPUSCULAR HGB 31.7 pg (27.0-31.0); MEAN CORPUSCULAR HGB CONC 34.7 g/dl (33.0-37.0); MEAN PLATELET VOLUME 10.2 fl (9.6-12.3); MONO # 0.6 10*3/uL (0.1-1.0); MONO % 6.9 % (3.0-9.0); NEUT # 4.9 10*3/uL (2.3-7.9); NEUT % 52.6 % (47.0-73.0); PLATELET COUNT AUTOMATED 228 10*3/uL (130-400); RED BLOOD COUNT 5.33 10*6/uL (4.10-5.10); RED CELL DISTRI WIDTH 12.7 % (0-14.5); WHITE BLOOD COUNT 9.3 10*3/uL (4.8-10.8)
[2020-09-02 23:23] LABS: ALBUMIN 3.8 gm/dl (3.1-4.5); ALKALINE PHOSPHATASE 124 U/L (45-117); BUN 12 mg/dl (7-24); CHLORIDE 105 mmol/L (98-107); CREATININE 1.08 mg/dL (0.55-1.02); POTASSIUM 3.7 mmol/L (3.5-5.1); SGOT/AST 17 IU/L (3-35); SGPT/ALT 19 U/L (12-78); SODIUM 137 mmol/L (136-145); TOTAL PROTEIN 7.9 gm/dL (6.4-8.2)
[2020-09-02 23:25] LABS: TROPONIN I 0.129 ng/ml (<0.045)
[2020-09-02 23:31] VITALS: BP 199/89
== END 2020-09-03 02:09 | disposition home or self-care (01) ==
LOC: ED 22:32
PROVIDERS: Internal Medicine
DX: F41.9 Anxiety disorder, unspecified (principal); R77.8 Other specified abnormalities of plasma proteins; N18.31 Chronic kidney disease, stage 3a; Z91.041 Radiographic dye allergy status; Z88.2 Allergy status to sulfonamides; Z88.6 Allergy status to analgesic agent; Z88.8 Allergy status to other drugs, medicaments and biological substances; Z88.5 Allergy status to narcotic agent; Z79.82 Long term (current) use of aspirin; Z79.899 Other long term (current) drug therapy; Z79.4 Long term (current) use of insulin; Z95.818 Presence of other cardiac implants and grafts; Z90.49 Acquired absence of other specified parts of digestive tract; Z98.51 Tubal ligation status; Z87.891 Personal history of nicotine dependence

== ENCOUNTER → 2020-09-04 | Outpatient (CLI) | payer OTHER ==
[2020-09-04 11:36] LABS: BILIRUBIN Negative (Negative); BLOOD Negative (Negative); CLARITY Clear (Clear); COLOR Yellow (Yellow); GLUCOSE 3+ (Negative); KETONE Negative (Negative); LEUKO ESTERASE Negative (Negative); NITRITE Negative (Negative); PH 5.5 (4.5-8.0); SPECIFIC GRAVITY 1.015 (1.001-1.030)
[2020-09-04 11:49] LABS: ALBUMIN 3.5 gm/dl (3.1-4.5); ALKALINE PHOSPHATASE 122 U/L (45-117); BILIRUBIN, DIRECT 0.2 mg/dL (0.0-0.2); BUN 10 mg/dl (7-24); CHLORIDE 104 mmol/L (98-107); CHOLESTEROL 189 mg/dL (<200); CREATININE 0.89 mg/dL (0.55-1.02); FREE T4 1.06 ng/dl (0.76-1.46); HDL CHOLESTEROL 35 mg/dl (40-60); LDL CHOLESTEROL 103 mg/dL (9-159); SGOT/AST 17 IU/L (3-35); SGPT/ALT 18 U/L (12-78); SODIUM 138 mmol/L (136-145); TOTAL PROTEIN 7.3 gm/dL (6.4-8.2); TRIGLYCERIDES 255 mg/dl (<150); VLDL CHOLESTEROL 51 mg/dL (6-40)
[2020-09-04 11:56] LABS: RBC 0-2 rbc/hpf (0-2)
[2020-09-04 12:08] LABS: VITAMIN D, 25-HYDROXY 31.6 ng/mL (30-100)
== END | disposition home or self-care (01) ==
LOC: LAB 10:37
PROVIDERS: ATTEND Internal Medicine
DX: E11.65 Type 2 diabetes mellitus with hyperglycemia (principal); E78.5 Hyperlipidemia, unspecified; E55.9 Vitamin D deficiency, unspecified; E04.9 Nontoxic goiter, unspecified; E53.8 Deficiency of other specified B group vitamins

== ENCOUNTER → 2021-01-08 | Outpatient (CLI) | payer OTHER ==
[2021-01-08 12:03] LABS: BASO # 0.1 10*3/uL (0.0-0.1); BASO % 0.3 % (0.0-1.0); EOS # 0.1 10*3/uL (0.0-0.4); EOS % 0.6 % (1.0-4.0); HEMATOCRIT 46.4 % (37.0-47.0); LYMPH # 3.3 10*3/uL (1.3-4.4); LYMPH % 19.3 % (27.0-41.0); MEAN CELL VOLUME 94.1 fl (81.0-99.0); MEAN CORPUSCULAR HGB 32.7 pg (27.0-31.0); MEAN CORPUSCULAR HGB CONC 34.7 g/dl (33.0-37.0); MEAN PLATELET VOLUME 9.9 fl (9.6-12.3); MONO # 0.8 10*3/uL (0.1-1.0); MONO % 4.9 % (3.0-9.0); NEUT # 12.8 10*3/uL (2.3-7.9); NEUT % 74.4 % (47.0-73.0); PLATELET COUNT AUTOMATED 236 10*3/uL (130-400); RED BLOOD COUNT 4.93 10*6/uL (4.10-5.10); RED CELL DISTRI WIDTH 13.1 % (0-14.5); WHITE BLOOD COUNT 17.2 10*3/uL (4.8-10.8)
[2021-01-08 12:09] LABS: BILIRUBIN Negative (Negative); BLOOD Negative (Negative); CLARITY Clear (Clear); COLOR Yellow (Yellow); GLUCOSE 2+ (Negative); KETONE Negative (Negative); LEUKO ESTERASE 1+ (Negative); NITRITE Negative (Negative); UROBILINOGEN 0.2 E.U./dl (0.0-1.0)
[2021-01-08 12:15] LABS: BACTERIA 1+; RBC 0-2 rbc/hpf (0-2); WBC 16-20 wbc/hpf (0-5)
[2021-01-08 12:18] LABS: FREE T4 0.86 ng/dl (0.76-1.46)
[2021-01-08 12:20] LABS: ALKALINE PHOSPHATASE 126 U/L (45-117); BUN 19 mg/dl (7-24); CHLORIDE 108 mmol/L (98-107); CHOLESTEROL 199 mg/dL (<200); CREATININE 0.87 mg/dL (0.55-1.02); LDL CHOLESTEROL 108 mg/dL (9-159); POTASSIUM 3.8 mmol/L (3.5-5.1); SGOT/AST 10 IU/L (3-35); SGPT/ALT 20 U/L (12-78); SODIUM 138 mmol/L (136-145); TRIGLYCERIDES 237 mg/dl (<150)
[2021-01-08 12:45] LABS: VITAMIN D, 25-HYDROXY 30.3 ng/mL (30-100)
== END | disposition home or self-care (01) ==
LOC: LAB 03:52
PROVIDERS: Nurse Practitioner Family; ATTEND Internal Medicine
DX: E11.65 Type 2 diabetes mellitus with hyperglycemia (principal); E78.5 Hyperlipidemia, unspecified; E55.9 Vitamin D deficiency, unspecified; E04.9 Nontoxic goiter, unspecified; I10 Essential (primary) hypertension

== ENCOUNTER → 2021-01-12 | Outpatient (CLI) | payer OTHER ==
[2021-01-12 13:50] LABS: BASO # 0.1 10*3/uL (0.0-0.1); BASO % 0.5 % (0.0-1.0); EOS # 0.1 10*3/uL (0.0-0.4); EOS % 0.6 % (1.0-4.0); LYMPH # 3.1 10*3/uL (1.3-4.4); MONO # 0.6 10*3/uL (0.1-1.0); MONO % 4.8 % (3.0-9.0); NEUT # 8.8 10*3/uL (2.3-7.9); NEUT % 69.6 % (47.0-73.0); WHITE BLOOD COUNT 12.7 10*3/uL (4.8-10.8)
== END | disposition home or self-care (01) ==
LOC: LAB 13:17
PROVIDERS: ATTEND Nurse Practitioner Family
DX: D72.9 Disorder of white blood cells, unspecified (principal)

== ENCOUNTER → 2021-01-28 | Outpatient (CLI) | payer OTHER ==
[2021-01-28 13:58] LABS: BUN 10 mg/dl (7-24); CREATININE 0.81 mg/dL (0.55-1.02)
== END | disposition home or self-care (01) ==
LOC: CT 01-27 08:00 → LAB 00:13 → CT 00:13
PROVIDERS: ATTEND Urology
DX: C64.9 Malignant neoplasm of unspecified kidney, except renal pelvis (principal); K40.90 Unilateral inguinal hernia, without obstruction or gangrene, not specified as recurrent; N20.0 Calculus of kidney; K57.30 Diverticulosis of large intestine without perforation or abscess without bleeding

== ENCOUNTER → 2021-04-13 | Outpatient (CLI) | payer OTHER | END | disposition home or self-care (01) | LOC: RAD 12:28 | PROVIDERS: ATTEND Nurse Practitioner Family | DX: M47.817 Spondylosis without myelopathy or radiculopathy, lumbosacral region (principal); M25.551 Pain in right hip; M54.41 Lumbago with sciatica, right side ==

== ENCOUNTER → 2021-06-02 | Outpatient (CLI) | payer OTHER ==
[2021-06-02 09:45] LABS: CREATININE 0.82 mg/dL (0.55-1.02)
== END | disposition home or self-care (01) ==
LOC: LAB 01:45 → CT 09:00
PROVIDERS: ATTEND Internal Medicine Cardiovascular Disease
DX: I71.2 Thoracic aortic aneurysm, without rupture (principal); R91.1 Solitary pulmonary nodule; I10 Essential (primary) hypertension

== ENCOUNTER → 2021-12-13 | Outpatient (CLI) | payer OTHER ==
[2021-12-13 11:32] LABS: BILIRUBIN Negative (Negative); BLOOD Negative (Negative); CLARITY Clear (Clear); COLOR Yellow (Yellow); GLUCOSE 1+ (Negative); KETONE Trace (Negative); LEUKO ESTERASE 1+ (Negative); NITRITE Negative (Negative)
[2021-12-13 11:32] LABS: BASO # 0.1 10*3/uL (0.0-0.1); BASO % 0.8 % (0.0-1.0); EOS # 0.1 10*3/uL (0.0-0.4); EOS % 1.4 % (1.0-4.0); HEMATOCRIT 44.5 % (37.0-47.0); LYMPH # 2.7 10*3/uL (1.3-4.4); MEAN CELL VOLUME 90.3 fl (81.0-99.0); MEAN CORPUSCULAR HGB 31.8 pg (27.0-31.0); MEAN CORPUSCULAR HGB CONC 35.3 g/dl (33.0-37.0); MEAN PLATELET VOLUME 9.9 fl (9.6-12.3); MONO # 0.5 10*3/uL (0.1-1.0); MONO % 5.9 % (3.0-9.0); NEUT # 5.7 10*3/uL (2.3-7.9); NEUT % 62.6 % (47.0-73.0); PLATELET COUNT AUTOMATED 213 10*3/uL (130-400); RED BLOOD COUNT 4.93 10*6/uL (4.10-5.10); RED CELL DISTRI WIDTH 12.7 % (0-14.5); WHITE BLOOD COUNT 9.2 10*3/uL (4.8-10.8)
[2021-12-13 11:38] LABS: BACTERIA TRACE; WBC 21-30 wbc/hpf (0-5)
[2021-12-13 11:39] LABS: HYALINE CAST 21-30; MUCOUS 1+
[2021-12-13 11:50] LABS: ALKALINE PHOSPHATASE 111 U/L (45-117); BUN 13 mg/dl (7-24); CHLORIDE 102 mmol/L (98-107); CHOLESTEROL 234 mg/dL (<200); CREATININE 0.92 mg/dL (0.55-1.02); FREE T4 1.01 ng/dl (0.76-1.46); LDL CHOLESTEROL 133 mg/dL (9-159); SGOT/AST 17 IU/L (3-35); SGPT/ALT 18 U/L (12-78); SODIUM 142 mmol/L (136-145); TOTAL PROTEIN 7.2 gm/dL (6.4-8.2); TRIGLYCERIDES 298 mg/dl (<150); URIC ACID 6.4 mg/dL (2.6-6.0)
== END | disposition home or self-care (01) ==
LOC: LAB 11:05
PROVIDERS: ATTEND Internal Medicine
DX: E11.65 Type 2 diabetes mellitus with hyperglycemia (principal); E78.5 Hyperlipidemia, unspecified; E53.8 Deficiency of other specified B group vitamins; E04.9 Nontoxic goiter, unspecified; D72.820 Lymphocytosis (symptomatic); N30.00 Acute cystitis without hematuria; E55.9 Vitamin D deficiency, unspecified

== ENCOUNTER → 2021-12-30 | Outpatient (CLI) | payer OTHER ==
[~2021-12-30] MED LIST changes: +ALDACTONE25 MG PO; +CLOPIDOGREL75 MG PO; +CRESTOR20 M1 PO; +FARXIGA5 M1 PO; +HUMALOG KW200 UNIT/1 SQ; +K-TAB20 MEQ PO; +OZEMPIC1 MG/0.71 SQ; +PHARMASSURE MA500 MG PO; +TOPROL XL50 M1 PO; +TOUJEO MAX300 UNIT/1 SQ; +VITAMIN D350 MC2 PO; -VITAMIN D5000 UNI1 PO
== END | disposition home or self-care (01) ==
LOC: CT 12-03 11:00
PROVIDERS: ATTEND Internal Medicine Critical Care Medicine
DX: J45.20 Mild intermittent asthma, uncomplicated (principal); R91.1 Solitary pulmonary nodule; Z87.891 Personal history of nicotine dependence; Z85.528 Personal history of other malignant neoplasm of kidney; Z86.16 Personal history of COVID-19; Z68.31 Body mass index [BMI] 31.0-31.9, adult; R91.8 Other nonspecific abnormal finding of lung field; I71.8 Aortic aneurysm of unspecified site, ruptured; I25.10 Atherosclerotic heart disease of native coronary artery without angina pectoris

== ENCOUNTER → 2022-07-25 | Outpatient (CLI) | payer OTHER ==
[~2022-07-25] MED LIST changes: +LEADER ASPIRIN325 MG PO; +LIPITOR40 MG PO; +VIBRA-TAB100 MG PO
== END | disposition home or self-care (01) ==
LOC: US 00:38
PROVIDERS: ATTEND Nurse Practitioner Family
DX: I70.202 Unspecified atherosclerosis of native arteries of extremities, left leg (principal); R09.89 Other specified symptoms and signs involving the circulatory and respiratory systems

== ENCOUNTER → 2022-09-01 | Outpatient (CLI) | payer OTHER ==
[2022-09-01 09:51] LABS: BILIRUBIN Negative (Negative); BLOOD Negative (Negative); CLARITY Clear (Clear); COLOR Yellow (Yellow); GLUCOSE 2+ (Negative); KETONE Negative (Negative); LEUKO ESTERASE 1+ (Negative); NITRITE Negative (Negative); PH 5.5 (4.5-8.0)
[2022-09-01 09:54] LABS: BASO # 0.1 10*3/uL (0.0-0.1); BASO % 0.8 % (0.0-1.0); EOS # 0.2 10*3/uL (0.0-0.4); EOS % 2.9 % (1.0-4.0); LYMPH # 2.8 10*3/uL (1.3-4.4); LYMPH % 38.8 % (27.0-41.0); MEAN CELL VOLUME 94.5 fl (81.0-99.0); MEAN CORPUSCULAR HGB 31.4 pg (27.0-31.0); MEAN CORPUSCULAR HGB CONC 33.3 g/dl (33.0-37.0); MEAN PLATELET VOLUME 9.8 fl (9.6-12.3); MONO # 0.5 10*3/uL (0.1-1.0); MONO % 6.6 % (3.0-9.0); NEUT # 3.6 10*3/uL (2.3-7.9); NEUT % 49.9 % (47.0-73.0); PLATELET COUNT AUTOMATED 200 10*3/uL (130-400); RED BLOOD COUNT 4.55 10*6/uL (4.10-5.10); RED CELL DISTRI WIDTH 12.9 % (0-14.5); WHITE BLOOD COUNT 7.2 10*3/uL (4.8-10.8)
[2022-09-01 10:23] LABS: WBC 21-30 wbc/hpf (0-5); YEAST 4+
[2022-09-01 10:42] LABS: ALKALINE PHOSPHATASE 100 U/L (46-116); BUN 7 mg/dl (9-23); CHLORIDE 107 mmol/L (98-107); CHOLESTEROL 139 mg/dL (<200); LDL CHOLESTEROL 62 mg/dL (9-159); POTASSIUM 2.7 mmol/L (3.4-5.1); SGPT/ALT 7 U/L (10-49); TOTAL PROTEIN 6.3 gm/dL (6.0-8.0); TRIGLYCERIDES 178 mg/dl (<150)
[2022-09-01 10:44] LABS: VITAMIN D, 25-HYDROXY 55.1 ng/mL (30-100)
== END | disposition home or self-care (01) ==
LOC: LAB 01:38
PROVIDERS: ATTEND Internal Medicine
DX: E11.65 Type 2 diabetes mellitus with hyperglycemia (principal); E11.40 Type 2 diabetes mellitus with diabetic neuropathy, unspecified; D72.820 Lymphocytosis (symptomatic); E04.9 Nontoxic goiter, unspecified; E55.9 Vitamin D deficiency, unspecified; E78.5 Hyperlipidemia, unspecified

== ENCOUNTER → 2022-09-02 | Outpatient (CLI) | payer OTHER | END | disposition home or self-care (01) | LOC: RAD 01:11 | PROVIDERS: ATTEND Nurse Practitioner Family | DX: M17.12 Unilateral primary osteoarthritis, left knee (principal) ==

== ENCOUNTER → 2022-09-29 | Outpatient (CLI) | payer OTHER ==
[2022-09-29 13:13] LABS: BASO # 0.1 10*3/uL (0.0-0.1); BASO % 0.5 % (0.0-1.0); EOS # 0.2 10*3/uL (0.0-0.4); EOS % 1.7 % (1.0-4.0); HEMATOCRIT 47.1 % (37.0-47.0); LYMPH # 2.8 10*3/uL (1.3-4.4); LYMPH % 25.7 % (27.0-41.0); MEAN CELL VOLUME 95.2 fl (81.0-99.0); MEAN CORPUSCULAR HGB 32.3 pg (27.0-31.0); MEAN PLATELET VOLUME 9.6 fl (9.6-12.3); MONO # 0.7 10*3/uL (0.1-1.0); MONO % 6.4 % (3.0-9.0); NEUT % 65.3 % (47.0-73.0); PLATELET COUNT AUTOMATED 232 10*3/uL (130-400); RED BLOOD COUNT 4.95 10*6/uL (4.10-5.10); RED CELL DISTRI WIDTH 12.8 % (0-14.5); WHITE BLOOD COUNT 10.7 10*3/uL (4.8-10.8)
[2022-09-29 13:18] LABS: BILIRUBIN Negative (Negative); BLOOD Negative (Negative); CLARITY Clear (Clear); COLOR Yellow (Yellow); GLUCOSE 3+ (Negative); KETONE Negative (Negative); LEUKO ESTERASE Negative (Negative); NITRITE Negative (Negative); PH 5.5 (4.5-8.0); SPECIFIC GRAVITY 1.025 (1.001-1.030); UROBILINOGEN 0.2 E.U./dl (0.0-1.0)
[2022-09-29 13:28] LABS: BACTERIA TRACE; EPITHELIAL CELLS 0-2; RBC 0-2 rbc/hpf (0-2)
[2022-09-29 14:01] LABS: ALKALINE PHOSPHATASE 118 U/L (46-116); BUN 10 mg/dl (9-23); CHLORIDE 106 mmol/L (98-107); CHOLESTEROL 167 mg/dL (<200); LDL CHOLESTEROL 84 mg/dL (9-159); POTASSIUM 4.3 mmol/L (3.4-5.1); THYROID STIM HORMONE (HS) 3.168 uIU/ml (0.550-4.780); TOTAL PROTEIN 7.4 gm/dL (6.0-8.0); TRIGLYCERIDES 208 mg/dl (<150)
[2022-09-29 14:02] LABS: SGPT/ALT < 7 U/L (10-49)
== END | disposition home or self-care (01) ==
LOC: LAB 01:04
PROVIDERS: Internal Medicine; ATTEND Nurse Practitioner Family
DX: E11.65 Type 2 diabetes mellitus with hyperglycemia (principal); E11.40 Type 2 diabetes mellitus with diabetic neuropathy, unspecified; D72.820 Lymphocytosis (symptomatic); E04.9 Nontoxic goiter, unspecified; E78.5 Hyperlipidemia, unspecified; E55.9 Vitamin D deficiency, unspecified

== ENCOUNTER 2022-12-26 11:44 | Emergency (ER) | payer OTHER ==
[~2022-12-26] VITALS: Ht 170.1 cm; Wt 71.7 kg
[~2022-12-26 11:44] MED LIST changes: -AMARYL4 MG PO; +GLIMEPIRIDE4 M1 PO
[2022-12-26 14:16] VITALS: BP 133/54
[2022-12-30] MEDS ORDERED: POTASSIUM CHLO20 ME3 PO (22:11)
[2022-12-30] MEDS ORDERED: ASPIRIN CHEWABL81 MG PO (22:13)
[2022-12-30] MEDS ORDERED: PEPCID20 MG PO (22:14)
[2022-12-30] MEDS ORDERED: LISINOPRIL20 MG PO (22:15)
[2022-12-30] MEDS ORDERED: Imdur SA60 MG PO (22:16)
[2022-12-30] MEDS ORDERED: CLOPIDOGREL75 MG PO (22:16)
[2022-12-30] MEDS ORDERED: B121000 MCG/1 IM (22:19)
[2022-12-30] MEDS ORDERED: OZEMPIC0.25 MG/03 SQ (22:19)
[2022-12-30] MEDS ORDERED: ZETIA10 MG PO (22:21)
[2022-12-31] MEDS ORDERED: NEXIUM 24HR20 M1 PO (11:15)
== END 2022-12-26 14:16 | disposition home or self-care (01) ==
LOC: ED 11:44
DX: S43.402A Unspecified sprain of left shoulder joint, initial encounter (principal); S63.91XA Sprain of unspecified part of right wrist and hand, initial encounter; S40.022A Contusion of left upper arm, initial encounter; E11.9 Type 2 diabetes mellitus without complications; J44.9 Chronic obstructive pulmonary disease, unspecified; I10 Essential (primary) hypertension; K21.9 Gastro-esophageal reflux disease without esophagitis; E78.00 Pure hypercholesterolemia, unspecified; F32.A Depression, unspecified; Z91.041 Radiographic dye allergy status; Z88.2 Allergy status to sulfonamides; Z88.5 Allergy status to narcotic agent; Z88.8 Allergy status to other drugs, medicaments and biological substances; Z90.49 Acquired absence of other specified parts of digestive tract; Z98.51 Tubal ligation status; Z98.890 Other specified postprocedural states; Z95.5 Presence of coronary angioplasty implant and graft; Z87.891 Personal history of nicotine dependence; W06.XXXA Fall from bed, initial encounter; Y93.89 Activity, other specified; Y92.009 Unspecified place in unspecified non-institutional (private) residence as the place of occurrence of the external cause; Y99.8 Other external cause status

== ENCOUNTER → 2023-02-11 | Outpatient (CLI) | payer OTHER ==
[~2023-02-11] MED LIST changes: +ASPIRIN CHEWABL81 MG PO; +Imdur SA60 MG PO; +NEXIUM 24HR20 M1 PO; +OZEMPIC0.25 MG/03 SQ; +PEPCID20 MG PO; +POTASSIUM CHLO20 ME3 PO; +ZETIA10 MG PO
[2023-02-11 09:11] LABS: BILIRUBIN Negative (Negative); BLOOD Negative (Negative); CLARITY Clear (Clear); COLOR Yellow (Yellow); GLUCOSE 3+ (Negative); KETONE Negative (Negative); LEUKO ESTERASE Negative (Negative); NITRITE Negative (Negative); SPECIFIC GRAVITY >= 1.030 (1.001-1.030)
[2023-02-11 09:12] LABS: BASO # 0.1 10*3/uL (0.0-0.1); EOS # 0.2 10*3/uL (0.0-0.4); EOS % 2.4 % (1.0-4.0); LYMPH # 3.1 10*3/uL (1.3-4.4); LYMPH % 36.7 % (27.0-41.0); MEAN CELL VOLUME 94.3 fl (81.0-99.0); MEAN CORPUSCULAR HGB 31.4 pg (27.0-31.0); MEAN CORPUSCULAR HGB CONC 33.3 g/dl (33.0-37.0); MEAN PLATELET VOLUME 9.8 fl (9.6-12.3); MONO # 0.5 10*3/uL (0.1-1.0); MONO % 6.2 % (3.0-9.0); NEUT # 4.5 10*3/uL (2.3-7.9); NEUT % 53.5 % (47.0-73.0); PLATELET COUNT AUTOMATED 255 10*3/uL (130-400); RED BLOOD COUNT 4.88 10*6/uL (4.10-5.10); RED CELL DISTRI WIDTH 12.7 % (0-14.5); WHITE BLOOD COUNT 8.4 10*3/uL (4.8-10.8)
[2023-02-11 09:40] LABS: BACTERIA TRACE; YEAST 1+
[2023-02-11 09:51] LABS: FREE T4 0.96 ng/dl (0.89-1.76); POTASSIUM 4.5 mmol/L (3.4-5.1); TOTAL PROTEIN 7.4 gm/dL (6.0-8.0)
[2023-02-11 10:49] LABS: VITAMIN D, 25-HYDROXY 65.6 ng/mL (30-100)
== END | disposition home or self-care (01) ==
LOC: LAB 02-10 00:04
PROVIDERS: ATTEND Internal Medicine
DX: E11.40 Type 2 diabetes mellitus with diabetic neuropathy, unspecified (principal); E83.42 Hypomagnesemia; E78.5 Hyperlipidemia, unspecified; E04.9 Nontoxic goiter, unspecified; D72.820 Lymphocytosis (symptomatic)

== ENCOUNTER → 2023-06-05 | Outpatient (CLI) | payer OTHER | END | disposition home or self-care (01) | LOC: CT 01:12 | PROVIDERS: ATTEND Urology | DX: C64.9 Malignant neoplasm of unspecified kidney, except renal pelvis (principal); C67.9 Malignant neoplasm of bladder, unspecified; D28.7 Benign neoplasm of other specified female genital organs; N20.0 Calculus of kidney; I87.8 Other specified disorders of veins; K40.90 Unilateral inguinal hernia, without obstruction or gangrene, not specified as recurrent; M16.0 Bilateral primary osteoarthritis of hip; I70.0 Atherosclerosis of aorta; Z90.49 Acquired absence of other specified parts of digestive tract ==

== ENCOUNTER → 2023-07-13 | Outpatient (CLI) | payer OTHER ==
[2023-07-13 11:11] LABS: BASO # 0.1 10*3/uL (0.0-0.1); BASO % 0.9 % (0.0-1.0); EOS # 0.3 10*3/uL (0.0-0.4); EOS % 3.6 % (1.0-4.0); HEMATOCRIT 44.1 % (37.0-47.0); LYMPH # 2.3 10*3/uL (1.3-4.4); LYMPH % 28.8 % (27.0-41.0); MEAN CELL VOLUME 93.4 fl (81.0-99.0); MEAN CORPUSCULAR HGB 30.1 pg (27.0-31.0); MEAN CORPUSCULAR HGB CONC 32.2 g/dl (33.0-37.0); MEAN PLATELET VOLUME 10.2 fl (9.6-12.3); MONO # 0.5 10*3/uL (0.1-1.0); MONO % 6.3 % (3.0-9.0); NEUT # 4.9 10*3/uL (2.3-7.9); NEUT % 60.3 % (47.0-73.0); PLATELET COUNT AUTOMATED 208 10*3/uL (130-400); RED BLOOD COUNT 4.72 10*6/uL (4.10-5.10); RED CELL DISTRI WIDTH 13.4 % (0-14.5); WHITE BLOOD COUNT 8.1 10*3/uL (4.8-10.8)
[2023-07-13 11:21] LABS: URINE CREATININE RANDOM 80.25 mg/dL
[2023-07-13 11:38] LABS: ALKALINE PHOSPHATASE 92 U/L (46-116); BUN 9 mg/dl (9-23); CHLORIDE 108 mmol/L (98-107); CHOLESTEROL 135 mg/dL (<200); LDL CHOLESTEROL 67 mg/dL (9-159); POTASSIUM 4.2 mmol/L (3.4-5.1); SGPT/ALT < 7 U/L (5-49); TOTAL PROTEIN 6.8 gm/dL (6.0-8.0); TRIGLYCERIDES 183 mg/dl (<150)
== END | disposition home or self-care (01) ==
LOC: LAB 10:26
PROVIDERS: ATTEND Nurse Practitioner Family
DX: I10 Essential (primary) hypertension (principal); E11.9 Type 2 diabetes mellitus without complications; E78.5 Hyperlipidemia, unspecified; I71.20 Thoracic aortic aneurysm, without rupture, unspecified; Z85.528 Personal history of other malignant neoplasm of kidney

== ENCOUNTER → 2023-10-21 | Outpatient (CLI) | payer OTHER | END | disposition home or self-care (01) | LOC: CT 00:48 | PROVIDERS: ATTEND Nurse Practitioner Family | DX: I71.20 Thoracic aortic aneurysm, without rupture, unspecified (principal) ==

== ENCOUNTER → 2023-12-21 | Outpatient (CLI) | payer OTHER ==
[2023-12-21 14:03] LABS: BILIRUBIN Negative (Negative); BLOOD Negative (Negative); CLARITY Clear (Clear); COLOR Yellow (Yellow); GLUCOSE 3+ (Negative); KETONE Negative (Negative); LEUKO ESTERASE 1+ (Negative); NITRITE Negative (Negative); UROBILINOGEN 0.2 E.U./dl (0.0-1.0)
[2023-12-21 14:10] LABS: BACTERIA 1+; RBC 0-2 rbc/hpf (0-2); WBC 16-20 wbc/hpf (0-5)
[2023-12-21 14:28] LABS: POTASSIUM 4.5 mmol/L (3.4-5.1); TOTAL PROTEIN 7.1 gm/dL (6.0-8.0)
== END | disposition home or self-care (01) ==
LOC: LAB 02:10
PROVIDERS: ATTEND Internal Medicine
DX: E11.65 Type 2 diabetes mellitus with hyperglycemia (principal); E04.9 Nontoxic goiter, unspecified; E78.5 Hyperlipidemia, unspecified

== ENCOUNTER → 2024-04-08 | Outpatient (CLI) | payer OTHER | END | disposition home or self-care (01) | LOC: RESCLI 01:28 | PROVIDERS: ATTEND Internal Medicine | DX: I10 Essential (primary) hypertension (principal); F41.9 Anxiety disorder, unspecified; K21.9 Gastro-esophageal reflux disease without esophagitis; I71.20 Thoracic aortic aneurysm, without rupture, unspecified; F32.9 Major depressive disorder, single episode, unspecified; E11.9 Type 2 diabetes mellitus without complications; I65.23 Occlusion and stenosis of bilateral carotid arteries; I25.10 Atherosclerotic heart disease of native coronary artery without angina pectoris; C64.2 Malignant neoplasm of left kidney, except renal pelvis; E78.5 Hyperlipidemia, unspecified; I63.9 Cerebral infarction, unspecified; G89.29 Other chronic pain; E53.9 Vitamin B deficiency, unspecified; E55.9 Vitamin D deficiency, unspecified; R26.9 Unspecified abnormalities of gait and mobility; Z79.899 Other long term (current) drug therapy; Z98.890 Other specified postprocedural states; Z88.8 Allergy status to other drugs, medicaments and biological substances; Z88.2 Allergy status to sulfonamides ==

== ENCOUNTER → 2024-04-18 | Outpatient (CLI) | payer OTHER ==
[2024-04-18 10:03] LABS: POTASSIUM 4.5 mmol/L (3.4-5.1); TOTAL PROTEIN 6.9 gm/dL (6.0-8.0)
== END | disposition home or self-care (01) ==
LOC: LAB 00:29
PROVIDERS: ATTEND Internal Medicine
DX: E11.65 Type 2 diabetes mellitus with hyperglycemia (principal); E04.9 Nontoxic goiter, unspecified; E78.5 Hyperlipidemia, unspecified

== ENCOUNTER 2024-04-20 19:13 | Emergency (ER) | payer OTHER ==
[~2024-04-20] VITALS: Ht 157.5 cm; Wt 71.7 kg
[2024-04-20 19:27] VITALS: BP 131/56
== END 2024-04-20 19:45 | disposition home or self-care (01) ==
LOC: ED 19:13
DX: R53.83 Other fatigue (principal); M25.511 Pain in right shoulder; E78.5 Hyperlipidemia, unspecified; K21.9 Gastro-esophageal reflux disease without esophagitis; E11.22 Type 2 diabetes mellitus with diabetic chronic kidney disease; I12.9 Hypertensive chronic kidney disease with stage 1 through stage 4 chronic kidney disease, or unspecified chronic kidney disease; N18.9 Chronic kidney disease, unspecified; J44.9 Chronic obstructive pulmonary disease, unspecified; E78.00 Pure hypercholesterolemia, unspecified; F32.A Depression, unspecified; Z86.73 Personal history of transient ischemic attack (TIA), and cerebral infarction without residual deficits; M19.90 Unspecified osteoarthritis, unspecified site; Z91.041 Radiographic dye allergy status; Z88.1 Allergy status to other antibiotic agents; Z88.2 Allergy status to sulfonamides; Z88.8 Allergy status to other drugs, medicaments and biological substances; Z98.890 Other specified postprocedural states; Z90.49 Acquired absence of other specified parts of digestive tract; Z95.5 Presence of coronary angioplasty implant and graft; Z87.891 Personal history of nicotine dependence; W19.XXXA Unspecified fall, initial encounter; Y93.89 Activity, other specified; Y92.89 Other specified places as the place of occurrence of the external cause; Y99.8 Other external cause status

== ENCOUNTER 2024-06-06 15:45 | Emergency (ER) | payer OTHER ==
[~2024-06-06] VITALS: Ht 61 cm; Wt 71.7 kg
[2024-06-06 15:55] VITALS: BP 136/51
[2024-06-06] MEDS ORDERED: [UNRECOGNIZED DRUG - OTHER] PO (16:01)
[2024-06-06] MEDS ORDERED: OXYCODONE HCL (IR) 5 MG TAB PO ONE (16:40)
[2024-06-06 17:08] LABS: BASO % 0.4 % (0.0-1.0); EOS # 0.1 10*3/uL (0.0-0.4); EOS % 1.4 % (1.0-4.0); MEAN CELL VOLUME 93.1 fl (81.0-99.0); MEAN CORPUSCULAR HGB 29.4 pg (27.0-31.0); MEAN CORPUSCULAR HGB CONC 31.6 g/dl (33.0-37.0); MEAN PLATELET VOLUME 9.5 fl (9.6-12.3); MONO # 0.6 10*3/uL (0.1-1.0); MONO % 6.1 % (3.0-9.0); NEUT # 6.2 10*3/uL (2.3-7.9); NEUT % 67.7 % (47.0-73.0); PLATELET COUNT AUTOMATED 223 10*3/uL (130-400); RED BLOOD COUNT 4.62 10*6/uL (4.10-5.10); RED CELL DISTRI WIDTH 13.9 % (0-14.5); WHITE BLOOD COUNT 9.1 10*3/uL (4.8-10.8)
[2024-06-06 17:30] LABS: POTASSIUM 3.9 mmol/L (3.4-5.1)
[2024-06-06] MEDS ORDERED: ELIQUIS5 M1 PO (18:26)
[2024-06-06] MEDS ORDERED: Enoxaparin Sodium 100 MG/ML SYR SC SCH (22:00)
== END 2024-06-06 18:36 | disposition home or self-care (01) ==
LOC: ED 15:45
PROVIDERS: Internal Medicine
DX: I82.411 Acute embolism and thrombosis of right femoral vein (principal); E11.9 Type 2 diabetes mellitus without complications; J44.9 Chronic obstructive pulmonary disease, unspecified; I10 Essential (primary) hypertension; K21.9 Gastro-esophageal reflux disease without esophagitis; E78.00 Pure hypercholesterolemia, unspecified; F32.A Depression, unspecified; Z86.73 Personal history of transient ischemic attack (TIA), and cerebral infarction without residual deficits; M19.90 Unspecified osteoarthritis, unspecified site; Z91.041 Radiographic dye allergy status; Z88.2 Allergy status to sulfonamides; Z88.1 Allergy status to other antibiotic agents; Z88.8 Allergy status to other drugs, medicaments and biological substances; Z90.49 Acquired absence of other specified parts of digestive tract; Z95.5 Presence of coronary angioplasty implant and graft; Z98.890 Other specified postprocedural states; Z87.891 Personal history of nicotine dependence

== ENCOUNTER → 2024-06-10 | Outpatient (CLI) | payer OTHER ==
[~2024-06-10] MED LIST changes: +ELIQUIS5 M1 PO; +[UNRECOGNIZED DRUG - OTHER] PO
== END | disposition home or self-care (01) ==
LOC: RESCLI 11:09
PROVIDERS: ATTEND Internal Medicine
DX: E11.9 Type 2 diabetes mellitus without complications (principal); I10 Essential (primary) hypertension; E78.5 Hyperlipidemia, unspecified; I63.9 Cerebral infarction, unspecified; I82.409 Acute embolism and thrombosis of unspecified deep veins of unspecified lower extremity; G89.29 Other chronic pain; F41.9 Anxiety disorder, unspecified; F32.9 Major depressive disorder, single episode, unspecified; I25.10 Atherosclerotic heart disease of native coronary artery without angina pectoris; E53.9 Vitamin B deficiency, unspecified; E55.9 Vitamin D deficiency, unspecified; G62.9 Polyneuropathy, unspecified; Z79.899 Other long term (current) drug therapy; Z88.2 Allergy status to sulfonamides; Z88.8 Allergy status to other drugs, medicaments and biological substances

== ENCOUNTER → 2024-07-05 | Outpatient (CLI) | payer OTHER | END | disposition home or self-care (01) | LOC: RESCLI 07:05 | PROVIDERS: ATTEND Internal Medicine | DX: I10 Essential (primary) hypertension (principal); R10.32 Left lower quadrant pain; R42 Dizziness and giddiness; R26.9 Unspecified abnormalities of gait and mobility; I82.409 Acute embolism and thrombosis of unspecified deep veins of unspecified lower extremity; E11.9 Type 2 diabetes mellitus without complications; G89.29 Other chronic pain; E78.5 Hyperlipidemia, unspecified; E53.9 Vitamin B deficiency, unspecified; G62.9 Polyneuropathy, unspecified; E55.9 Vitamin D deficiency, unspecified; I25.10 Atherosclerotic heart disease of native coronary artery without angina pectoris; F41.9 Anxiety disorder, unspecified; Z79.899 Other long term (current) drug therapy; Z98.890 Other specified postprocedural states; Z88.8 Allergy status to other drugs, medicaments and biological substances ==

== ENCOUNTER → 2024-07-25 | Outpatient (CLI) | payer OTHER ==
[2024-07-25 12:03] LABS: BASO % 0.4 % (0.0-1.0); EOS # 0.1 10*3/uL (0.0-0.4); EOS % 1.5 % (1.0-4.0); HEMATOCRIT 29.9 % (37.0-47.0); MEAN CELL VOLUME 87.9 fl (81.0-99.0); MEAN CORPUSCULAR HGB 26.8 pg (27.0-31.0); MEAN CORPUSCULAR HGB CONC 30.4 g/dl (33.0-37.0); MEAN PLATELET VOLUME 9.9 fl (9.6-12.3); MONO # 0.5 10*3/uL (0.1-1.0); MONO % 6.1 % (3.0-9.0); NEUT # 5.2 10*3/uL (2.3-7.9); NEUT % 64.7 % (47.0-73.0); PLATELET COUNT AUTOMATED 263 10*3/uL (130-400); RED CELL DISTRI WIDTH 13.5 % (0-14.5); WHITE BLOOD COUNT 8.1 10*3/uL (4.8-10.8)
[2024-07-25 12:46] LABS: FREE T4 1.16 ng/dl (0.89-1.76); TOTAL PROTEIN 6.6 gm/dL (6.0-8.0)
== END | disposition home or self-care (01) ==
LOC: LAB 02:44 → CT 14:00 → LAB 14:00
PROVIDERS: Student in an Organized Health Care Education/Training Program; ATTEND Internal Medicine
DX: N20.0 Calculus of kidney (principal); D35.01 Benign neoplasm of right adrenal gland; N26.1 Atrophy of kidney (terminal); K57.30 Diverticulosis of large intestine without perforation or abscess without bleeding; I25.10 Atherosclerotic heart disease of native coronary artery without angina pectoris; R42 Dizziness and giddiness; R10.32 Left lower quadrant pain; Z79.899 Other long term (current) drug therapy

== ENCOUNTER 2024-08-02 16:45 | Inpatient (IN) | payer OTHER ==
[~2024-08-02] VITALS: Ht 157.4 cm; Wt 67.8 kg
[2024-08-02 16:52] VITALS: BP 121/42
[2024-08-02] MEDS ORDERED: fentaNYL CITRATE/PF 50 MCG/ML SYRINGE IV ONE (16:55)
[2024-08-02] MEDS ORDERED: Ondansetron Hydrochloride 4 MG/2 ML VIAL IV ONE (16:55)
[2024-08-02] MEDS ORDERED: SODIUM CHLORIDE 0.9% 1,000 ML IV ONE ×2 (16:55→17:55)
[2024-08-02 17:20] LABS: BASO % 0.2 % (0.0-1.0); EOS # 0.1 10*3/uL (0.0-0.4); EOS % 0.6 % (1.0-4.0); HEMATOCRIT 25.8 % (37.0-47.0); MEAN CELL VOLUME 86.3 fl (81.0-99.0); MEAN CORPUSCULAR HGB 25.8 pg (27.0-31.0); MEAN CORPUSCULAR HGB CONC 29.8 g/dl (33.0-37.0); MEAN PLATELET VOLUME 10.5 fl (9.6-12.3); MONO # 0.6 10*3/uL (0.1-1.0); NEUT # 9.5 10*3/uL (2.3-7.9); NEUT % 80.3 % (47.0-73.0); PLATELET COUNT AUTOMATED 260 10*3/uL (130-400); RED BLOOD COUNT 2.99 10*6/uL (4.10-5.10); WHITE BLOOD COUNT 11.9 10*3/uL (4.8-10.8)
[2024-08-02] MEDS ORDERED: PROTONIX20 MG PO (17:32)
[2024-08-02] MEDS ORDERED: HUMALOG100 UNIT/1 SC (17:32)
[2024-08-02] MEDS ORDERED: OXYCODONE HCL (IR) 10 MG TABLET PO ONE (17:40)
[2024-08-02 17:43] LABS: POTASSIUM 5.9 mmol/L (3.4-5.1)
[2024-08-02] MEDS ORDERED: OZEMPIC2 MG/0.71 SQ (17:51)
[2024-08-02] MEDS ORDERED: ELIQUIS5 M1 PO (17:51)
[2024-08-02] MEDS ORDERED: INSULIN REGULAR, HUMAN 1 UNIT/0.01 ML IV ONE (17:55)
[2024-08-02] MEDS ORDERED: SODIUM POLYSTYRENE SULFONATE 15 GM/60 ML BOT PO ONE (17:55)
[2024-08-02 18:15] VITALS: BP 126/48
[2024-08-02] MEDS ORDERED: ACETAMINOPHEN 325 MG TAB PO PRN (18:15)
[2024-08-02] MEDS ORDERED: Ondansetron Hydrochloride 4 MG/2 ML VIAL IV PRN (18:15)
[2024-08-02 20:00] VITALS: BP 139/81
[2024-08-02 20:45] VITALS: BP 123/48
[2024-08-02 21:00] VITALS: BP 133/48
[2024-08-02] MEDS ORDERED: APIXABAN 5 MG TAB PO SCH (22:00)
[2024-08-02] MEDS ORDERED: ATORVASTATIN CALCIUM 80 MG TAB PO SCH (22:00)
[2024-08-02] MEDS ORDERED: OXYCODONE HCL (IR) 10 MG TABLET PO SCH (22:00)
[2024-08-02] MEDS ORDERED: GABAPENTIN 300 MG CAP PO SCH (22:00)
[2024-08-02] MEDS ORDERED: ATORVASTATIN CALCIUM 40 MG TABLET PO SCH (22:00)
[2024-08-02] MEDS ORDERED: DEXTROSE 10 % IN WATER 250 ML IV PRN (23:55)
[2024-08-03] VITALS: BP 128/40
[2024-08-03] MEDS ORDERED: Pantoprazole Sodium 40 MG TAB PO SCH (06:00)
[2024-08-03 06:19] LABS: BASO % 0.3 % (0.0-1.0); EOS # 0.1 10*3/uL (0.0-0.4); EOS % 0.7 % (1.0-4.0); HEMATOCRIT 23.4 % (37.0-47.0); MEAN CELL VOLUME 85.4 fl (81.0-99.0); MEAN CORPUSCULAR HGB 26.3 pg (27.0-31.0); MEAN CORPUSCULAR HGB CONC 30.8 g/dl (33.0-37.0); MONO # 0.5 10*3/uL (0.1-1.0); MONO % 5.9 % (3.0-9.0); NEUT # 5.5 10*3/uL (2.3-7.9); NEUT % 61.1 % (47.0-73.0); PLATELET COUNT AUTOMATED 231 10*3/uL (130-400); RED BLOOD COUNT 2.74 10*6/uL (4.10-5.10)
[2024-08-03 06:32] LABS: TOTAL PROTEIN 5.8 gm/dL (6.0-8.0)
[2024-08-03 07:01] LABS: POTASSIUM 4.2 mmol/L (3.4-5.1)
[2024-08-03] MEDS ORDERED: INSULIN LISPRO 1 UNIT/0.01 ML SQ SCH (07:30)
[2024-08-03 08:00] VITALS: BP 145/58
[2024-08-03] MEDS ORDERED: ISOSORBIDE MONONITRATE 60 MG TAB PO SCH (10:00)
[2024-08-03] MEDS ORDERED: ESCITALOPRAM OXALATE 20 MG TAB PO SCH (10:00)
[2024-08-03] MEDS ORDERED: EZETIMIBE 10 MG TAB PO SCH (10:00)
[2024-08-03] MEDS ORDERED: NA FERRIC GLUC CMPL/SUCROSE 62.5 MG/5 ML VIAL IV SCH (10:00)
[2024-08-03] MEDS ORDERED: ASPIRIN, CHEWABLE 81 MG TAB PO SCH (10:00)
[2024-08-03 12:00] VITALS: BP 134/61
[2024-08-03 16:00] VITALS: BP 103/43
[2024-08-03 20:00] VITALS: BP 130/60
[2024-08-03 21:26] LABS: BILIRUBIN Negative (Negative); BLOOD Negative (Negative); CLARITY Clear (Clear); COLOR Yellow (Yellow); GLUCOSE 3+ (Negative); KETONE Negative (Negative); LEUKO ESTERASE Negative (Negative); NITRITE Negative (Negative); PH 5.5 (4.5-8.0); SPECIFIC GRAVITY 1.025 (1.001-1.030); UROBILINOGEN 0.2 E.U./dl (0.0-1.0)
[2024-08-03 21:45] LABS: EPITHELIAL CELLS 0-2
[2024-08-04] VITALS (8 sets, daily range): BP systolic 118–153; BP diastolic 43–63
[2024-08-04 05:06] LABS: BUN 12 mg/dl (9-23); CHLORIDE 106 mmol/L (98-107); POTASSIUM 4.1 mmol/L (3.4-5.1)
[2024-08-04 06:44] LABS: HEMATOCRIT 21.3 % (37.0-47.0); MEAN CELL VOLUME 85.2 fl (81.0-99.0); MEAN CORPUSCULAR HGB CONC 30.5 g/dl (33.0-37.0); MEAN PLATELET VOLUME 10.9 fl (9.6-12.3); PLATELET COUNT AUTOMATED 221 10*3/uL (130-400); RED CELL DISTRI WIDTH 14.1 % (0-14.5); WHITE BLOOD COUNT 9.6 10*3/uL (4.8-10.8)
[2024-08-04 06:58] LABS: MANUAL DIFF REFLEX YES
[2024-08-04] MEDS ORDERED: Pantoprazole Sodium 40 MG TAB PO SCH (07:03)
[2024-08-04 07:15] LABS: TOTAL CELLS COUNTED 100 #CELLS
[2024-08-04 07:16] LABS: BURR CELLS FEW; OVALOCYTES FEW; PLATELET SUFFICIENCY NORMAL (NORMAL); POLYCHROMASIA SLIGHT
[2024-08-04] MEDS ORDERED: SUCRALFATE 1 GM TAB PO SCH (07:30)
[2024-08-04] MEDS ORDERED: SODIUM CHLORIDE 0.9% 500 ML IV ONE ×2 (09:30→09:47)
[2024-08-04 14:55] LABS: BASO # 0.1 10*3/uL (0.0-0.1); BASO % 0.5 % (0.0-1.0); EOS # 0.1 10*3/uL (0.0-0.4); EOS % 1.3 % (1.0-4.0); HEMATOCRIT 27.7 % (37.0-47.0); MEAN CELL VOLUME 86.3 fl (81.0-99.0); MEAN CORPUSCULAR HGB 26.8 pg (27.0-31.0); MEAN PLATELET VOLUME 10.4 fl (9.6-12.3); MONO # 0.6 10*3/uL (0.1-1.0); MONO % 6.7 % (3.0-9.0); NEUT # 5.7 10*3/uL (2.3-7.9); NEUT % 61.7 % (47.0-73.0); PLATELET COUNT AUTOMATED 232 10*3/uL (130-400); RED BLOOD COUNT 3.21 10*6/uL (4.10-5.10); WHITE BLOOD COUNT 9.2 10*3/uL (4.8-10.8)
[2024-08-05] VITALS (9 sets, daily range): BP systolic 100–171; BP diastolic 42–73
[2024-08-05] MEDS ORDERED: AMLODIPINE BESY10 MG PO (02:04)
[2024-08-05 05:18] LABS: BUN 10 mg/dl (9-23); CHLORIDE 106 mmol/L (98-107); POTASSIUM 4.3 mmol/L (3.4-5.1)
[2024-08-05 06:08] LABS: BASO # 0.1 10*3/uL (0.0-0.1); BASO % 0.5 % (0.0-1.0); EOS # 0.1 10*3/uL (0.0-0.4); EOS % 1.5 % (1.0-4.0); HEMATOCRIT 27.2 % (37.0-47.0); MEAN CELL VOLUME 85.3 fl (81.0-99.0); MEAN CORPUSCULAR HGB CONC 31.6 g/dl (33.0-37.0); MONO # 0.7 10*3/uL (0.1-1.0); MONO % 7.6 % (3.0-9.0); NEUT # 5.3 10*3/uL (2.3-7.9); NEUT % 57.7 % (47.0-73.0); PLATELET COUNT AUTOMATED 231 10*3/uL (130-400); RED BLOOD COUNT 3.19 10*6/uL (4.10-5.10); RED CELL DISTRI WIDTH 14.3 % (0-14.5); WHITE BLOOD COUNT 9.3 10*3/uL (4.8-10.8)
[2024-08-05] MEDS ORDERED: SODIUM CHLORIDE 0.9% 500 ML IV ONE (13:26)
[2024-08-05] MEDS ORDERED: Lidocaine Hydrochloride 5 ML VIAL IV ONE (14:14)
[2024-08-05] MEDS ORDERED: PROPOFOL 200 MG/20 ML VIAL IV ONE (14:14)
[2024-08-05] MEDS ORDERED: fentaNYL CITRATE 100 MCG/2 ML VIAL IV ONE (14:14)
[2024-08-06] VITALS: BP 127/50
[2024-08-06] MEDS ORDERED: Peg Electrolyte Lavage Solut 4,000 ML BOT PO ONE (07:50)
[2024-08-06] MEDS ORDERED: BISACODYL 5 MG TAB PO ONE (07:50)
[2024-08-06 08:00] VITALS: BP 162/62
[2024-08-06 12:00] VITALS: BP 148/57
[2024-08-06 16:00] VITALS: BP 159/51
[2024-08-06 20:00] VITALS: BP 144/52
[2024-08-07] VITALS: BP 119/56
[2024-08-07 06:19] LABS: BASO % 0.4 % (0.0-1.0); EOS # 0.1 10*3/uL (0.0-0.4); EOS % 1.7 % (1.0-4.0); MEAN CELL VOLUME 87.8 fl (81.0-99.0); MEAN CORPUSCULAR HGB CONC 30.7 g/dl (33.0-37.0); MEAN PLATELET VOLUME 10.8 fl (9.6-12.3); MONO # 0.7 10*3/uL (0.1-1.0); MONO % 8.6 % (3.0-9.0); NEUT % 58.9 % (47.0-73.0); PLATELET COUNT AUTOMATED 215 10*3/uL (130-400); RED BLOOD COUNT 3.19 10*6/uL (4.10-5.10); RED CELL DISTRI WIDTH 15.1 % (0-14.5); WHITE BLOOD COUNT 8.5 10*3/uL (4.8-10.8)
[2024-08-07 06:40] VITALS: BP 158/72
[2024-08-07] MEDS ORDERED: SODIUM CHLORIDE 0.9% 500 ML IV ONE (07:01)
[2024-08-07 07:35] VITALS: BP 109/64
[2024-08-07 07:50] VITALS: BP 108/66
[2024-08-07 08:00] VITALS: BP 155/61
[2024-08-07 08:02] VITALS: BP 128/71
[2024-08-07] MEDS ORDERED: Lidocaine Hydrochloride 5 ML VIAL IV ONE (16:01)
[2024-08-07] MEDS ORDERED: PROPOFOL 200 MG/20 ML VIAL IV ONE (16:01)
== END 2024-08-07 12:15 | disposition home or self-care (01) | DRG 377 ==
LOC: ED 16:45 → EDHOLD 18:09 → 4E 18:09 → EDHOLD 18:28 → 4E 19:54
PROVIDERS: Emergency Medicine; Internal Medicine; ADMIT Family Medicine; ATTEND Family Medicine
PROC: 30233N1 Transfusion of Nonautologous Red Blood Cells into Peripheral Vein, Percutaneous Approach (ICD-10-PCS; 2024-08-04)
PROC: 0HBRXZZ Excision of Toe Nail, External Approach (ICD-10-PCS; 2024-08-04)
PROC: 0HBRXZZ Excision of Toe Nail, External Approach (ICD-10-PCS; 2024-08-04)
PROC: 0HBRXZZ Excision of Toe Nail, External Approach (ICD-10-PCS; 2024-08-04)
PROC: 0HBRXZZ Excision of Toe Nail, External Approach (ICD-10-PCS; 2024-08-04)
PROC: 0HBRXZZ Excision of Toe Nail, External Approach (ICD-10-PCS; 2024-08-04)
PROC: 0HBRXZZ Excision of Toe Nail, External Approach (ICD-10-PCS; 2024-08-04)
PROC: 0HBRXZZ Excision of Toe Nail, External Approach (ICD-10-PCS; 2024-08-04)
PROC: 0HBRXZZ Excision of Toe Nail, External Approach (ICD-10-PCS; 2024-08-04)
PROC: 0HBRXZZ Excision of Toe Nail, External Approach (ICD-10-PCS; 2024-08-04)
PROC: 0HBRXZZ Excision of Toe Nail, External Approach (ICD-10-PCS; 2024-08-04)
PROC: 0DJ08ZZ Inspection of Upper Intestinal Tract, Via Natural or Artificial Opening Endoscopic (ICD-10-PCS; 2024-08-05)
PROC: 0DBL8ZZ Excision of Transverse Colon, Via Natural or Artificial Opening Endoscopic (ICD-10-PCS; principal; 2024-08-07)
DX: K57.31 Diverticulosis of large intestine without perforation or abscess with bleeding (principal); N17.0 Acute kidney failure with tubular necrosis; I82.511 Chronic embolism and thrombosis of right femoral vein; E87.20 Acidosis, unspecified; K64.9 Unspecified hemorrhoids; K21.9 Gastro-esophageal reflux disease without esophagitis; E86.0 Dehydration; B35.1 Tinea unguium; I10 Essential (primary) hypertension; E11.40 Type 2 diabetes mellitus with diabetic neuropathy, unspecified; E11.65 Type 2 diabetes mellitus with hyperglycemia; E78.2 Mixed hyperlipidemia; D50.9 Iron deficiency anemia, unspecified; E87.5 Hyperkalemia; K63.5 Polyp of colon; Z91.041 Radiographic dye allergy status; Z88.1 Allergy status to other antibiotic agents; Z88.8 Allergy status to other drugs, medicaments and biological substances; Z79.4 Long term (current) use of insulin; Z88.2 Allergy status to sulfonamides; Z86.73 Personal history of transient ischemic attack (TIA), and cerebral infarction without residual deficits; Z98.51 Tubal ligation status; Z90.49 Acquired absence of other specified parts of digestive tract; Z83.3 Family history of diabetes mellitus; Z82.49 Family history of ischemic heart disease and other diseases of the circulatory system; Z79.899 Other long term (current) drug therapy; Z87.891 Personal history of nicotine dependence; Z79.82 Long term (current) use of aspirin

== ENCOUNTER → 2024-08-08 | Outpatient (CLI) | payer OTHER ==
[~2024-08-08] MED LIST changes: +AMLODIPINE BESY10 MG PO; +HUMALOG100 UNIT/1 SC; +OZEMPIC2 MG/0.71 SQ; +PROTONIX20 MG PO
== END | disposition home or self-care (01) ==
LOC: RESCLI 13:40
PROVIDERS: ATTEND Internal Medicine Infectious Disease
DX: K92.2 Gastrointestinal hemorrhage, unspecified (principal); I25.10 Atherosclerotic heart disease of native coronary artery without angina pectoris; E78.5 Hyperlipidemia, unspecified; E11.9 Type 2 diabetes mellitus without complications; G62.9 Polyneuropathy, unspecified; R26.9 Unspecified abnormalities of gait and mobility; F41.9 Anxiety disorder, unspecified; I10 Essential (primary) hypertension; G89.29 Other chronic pain; E55.9 Vitamin D deficiency, unspecified; E53.9 Vitamin B deficiency, unspecified; I82.401 Acute embolism and thrombosis of unspecified deep veins of right lower extremity; Z79.82 Long term (current) use of aspirin; Z79.899 Other long term (current) drug therapy; Z98.890 Other specified postprocedural states; Z88.8 Allergy status to other drugs, medicaments and biological substances

== ENCOUNTER → 2024-08-14 | Outpatient (CLI) | payer OTHER ==
[2024-08-14 14:48] LABS: BASO # 0.1 10*3/uL (0.0-0.1); BASO % 0.7 % (0.0-1.0); EOS # 0.1 10*3/uL (0.0-0.4); HEMATOCRIT 34.2 % (37.0-47.0); MEAN CELL VOLUME 87.7 fl (81.0-99.0); MEAN CORPUSCULAR HGB 27.2 pg (27.0-31.0); MONO # 0.4 10*3/uL (0.1-1.0); MONO % 5.4 % (3.0-9.0); NEUT # 4.1 10*3/uL (2.3-7.9); NEUT % 61.3 % (47.0-73.0); PLATELET COUNT AUTOMATED 243 10*3/uL (130-400); RED CELL DISTRI WIDTH 16.7 % (0-14.5); WHITE BLOOD COUNT 6.7 10*3/uL (4.8-10.8)
[2024-08-14 15:23] LABS: ALKALINE PHOSPHATASE 78 U/L (46-116); BUN 8 mg/dl (9-23); CHLORIDE 106 mmol/L (98-107); FREE T4 1.25 ng/dl (0.89-1.76); POTASSIUM 3.6 mmol/L (3.4-5.1); SGPT/ALT 15 U/L (5-49); TOTAL PROTEIN 6.6 gm/dL (6.0-8.0)
== END | disposition home or self-care (01) ==
LOC: LAB 00:43
PROVIDERS: Student in an Organized Health Care Education/Training Program; ATTEND Internal Medicine
DX: R10.32 Left lower quadrant pain (principal); R42 Dizziness and giddiness; Z79.899 Other long term (current) drug therapy

== ENCOUNTER → 2024-09-09 | Outpatient (CLI) | payer OTHER ==
[2024-09-09 13:56] LABS: BASO # 0.1 10*3/uL (0.0-0.1); BASO % 0.6 % (0.0-1.0); EOS # 0.1 10*3/uL (0.0-0.4); EOS % 1.6 % (1.0-4.0); HEMATOCRIT 36.1 % (37.0-47.0); MEAN CORPUSCULAR HGB 24.8 pg (27.0-31.0); MEAN CORPUSCULAR HGB CONC 29.9 g/dl (33.0-37.0); MEAN PLATELET VOLUME 10.2 fl (9.6-12.3); MONO # 0.6 10*3/uL (0.1-1.0); MONO % 6.3 % (3.0-9.0); NEUT # 5.5 10*3/uL (2.3-7.9); NEUT % 61.7 % (47.0-73.0); PLATELET COUNT AUTOMATED 256 10*3/uL (130-400); RED BLOOD COUNT 4.35 10*6/uL (4.10-5.10); RED CELL DISTRI WIDTH 16.2 % (0-14.5); WHITE BLOOD COUNT 8.9 10*3/uL (4.8-10.8)
[2024-09-09 14:04] LABS: BILIRUBIN Negative (Negative); BLOOD Negative (Negative); CLARITY Clear (Clear); COLOR Yellow (Yellow); GLUCOSE 3+ (Negative); KETONE Negative (Negative); LEUKO ESTERASE Negative (Negative); NITRITE Negative (Negative); PH 5.5 (4.5-8.0); SPECIFIC GRAVITY >= 1.030 (1.001-1.030)
[2024-09-09 14:24] LABS: POTASSIUM 3.3 mmol/L (3.4-5.1); TOTAL PROTEIN 6.4 gm/dL (6.0-8.0)
[2024-09-09 14:25] LABS: VITAMIN D, 25-HYDROXY 119.4 ng/mL (30-100)
[2024-09-09 14:46] LABS: BACTERIA 1+; YEAST 1+
== END | disposition home or self-care (01) ==
LOC: LAB 13:30
PROVIDERS: ATTEND Internal Medicine
DX: E11.65 Type 2 diabetes mellitus with hyperglycemia (principal); E04.9 Nontoxic goiter, unspecified; E11.40 Type 2 diabetes mellitus with diabetic neuropathy, unspecified; E78.5 Hyperlipidemia, unspecified; E55.9 Vitamin D deficiency, unspecified

== ENCOUNTER → 2024-10-11 | Outpatient (CLI) | payer OTHER | END | disposition home or self-care (01) | LOC: RAD 00:03 | PROVIDERS: ATTEND Physician Assistant | DX: M47.812 Spondylosis without myelopathy or radiculopathy, cervical region (principal); M48.02 Spinal stenosis, cervical region; M51.17 Intervertebral disc disorders with radiculopathy, lumbosacral region; M54.2 Cervicalgia ==

== ENCOUNTER → 2024-10-23 | Outpatient (CLI) | payer OTHER ==
[~2024-10-23] MED LIST changes: +OXYCODONE-ACET1 EACH PO
== END | disposition home or self-care (01) ==
LOC: RESCLI 01:26
PROVIDERS: ATTEND Internal Medicine
DX: I25.10 Atherosclerotic heart disease of native coronary artery without angina pectoris (principal); E78.5 Hyperlipidemia, unspecified; E11.40 Type 2 diabetes mellitus with diabetic neuropathy, unspecified; R26.9 Unspecified abnormalities of gait and mobility; F41.9 Anxiety disorder, unspecified; I10 Essential (primary) hypertension; K92.2 Gastrointestinal hemorrhage, unspecified; E53.9 Vitamin B deficiency, unspecified; E55.9 Vitamin D deficiency, unspecified; I82.409 Acute embolism and thrombosis of unspecified deep veins of unspecified lower extremity; Z86.73 Personal history of transient ischemic attack (TIA), and cerebral infarction without residual deficits

== ENCOUNTER 2024-10-30 14:54 | Emergency (ER) | payer OTHER ==
[~2024-10-30] VITALS: Wt 67.1 kg
[2024-10-30 14:59] VITALS: BP 147/66
== END 2024-10-30 15:56 | disposition home or self-care (01) ==
LOC: ED 14:54
DX: E11.65 Type 2 diabetes mellitus with hyperglycemia (principal); R53.83 Other fatigue; Z91.041 Radiographic dye allergy status; Z88.2 Allergy status to sulfonamides; Z88.1 Allergy status to other antibiotic agents; Z88.6 Allergy status to analgesic agent; Z91.018 Allergy to other foods; Z79.899 Other long term (current) drug therapy; Z79.82 Long term (current) use of aspirin; Z79.4 Long term (current) use of insulin; Z90.49 Acquired absence of other specified parts of digestive tract; Z87.891 Personal history of nicotine dependence

== ENCOUNTER → 2025-01-13 | Outpatient (CLI) | payer OTHER ==
[2025-01-13 11:36] LABS: BUN 10 mg/dl (9-23); LDL CHOLESTEROL 46 mg/dL (9-159); SGPT/ALT 14 U/L (5-49); VITAMIN D, 25-HYDROXY 87.3 ng/mL (30-100)
== END | disposition home or self-care (01) ==
LOC: LAB 01-10 00:33
PROVIDERS: ATTEND Internal Medicine
DX: E11.40 Type 2 diabetes mellitus with diabetic neuropathy, unspecified (principal); E11.65 Type 2 diabetes mellitus with hyperglycemia; E04.9 Nontoxic goiter, unspecified; E78.5 Hyperlipidemia, unspecified; E55.9 Vitamin D deficiency, unspecified

== ENCOUNTER → 2025-02-18 | Outpatient (CLI) | payer OTHER ==
[~2025-02-18] MED LIST changes: -FARXIGA5 M1 PO; +LISINOPRIL40 MG PO; +OXYCODONE HCL5 MG PO; +[UNRECOGNIZED DRUG - OTHER] PO
== END | disposition home or self-care (01) ==
LOC: RESCLI 02:41
PROVIDERS: ATTEND Student in an Organized Health Care Education/Training Program
DX: H66.90 Otitis media, unspecified, unspecified ear (principal); H61.20 Impacted cerumen, unspecified ear; J30.9 Allergic rhinitis, unspecified; I25.10 Atherosclerotic heart disease of native coronary artery without angina pectoris; E78.5 Hyperlipidemia, unspecified; R26.9 Unspecified abnormalities of gait and mobility; E11.40 Type 2 diabetes mellitus with diabetic neuropathy, unspecified; F41.9 Anxiety disorder, unspecified; I10 Essential (primary) hypertension; K92.2 Gastrointestinal hemorrhage, unspecified; E53.9 Vitamin B deficiency, unspecified; E55.9 Vitamin D deficiency, unspecified; Z79.899 Other long term (current) drug therapy

== ENCOUNTER 2025-02-23 08:38 | Inpatient (IN) | payer OTHER ==
[2025-02-23] VITALS (9 sets, daily range): BP systolic 151–196; BP diastolic 44–100
[~2025-02-23] VITALS: Ht 157.4 cm; Wt 66.0 kg
[~2025-02-23 08:38] MED LIST changes: -LISINOPRIL40 MG PO; -OXYCODONE HCL5 MG PO; -[UNRECOGNIZED DRUG - OTHER] PO
[2025-02-23 09:30] LABS: BASO # 0.0 10*3/uL (0.0-0.1); BASO % 0.5 % (0.0-1.0); EOS # 0.2 10*3/uL (0.0-0.4); EOS % 2.3 % (1.0-4.0); MEAN CELL VOLUME 82.4 fl (81.0-99.0); MEAN CORPUSCULAR HGB 24.8 pg (27.0-31.0); MEAN PLATELET VOLUME 10.3 fl (9.6-12.3); MONO # 0.5 10*3/uL (0.1-1.0); MONO % 6.2 % (3.0-9.0); NEUT # 4.8 10*3/uL (2.3-7.9); NEUT % 61.2 % (47.0-73.0); NUCLEATED RED BLOOD CELL 0.0 % (0.0-0.0); NUCLEATED RED BLOOD CELL 0.0 10*3/uL (0.0-0.0); PLATELET COUNT AUTOMATED 214 10*3/uL (130-400); RED CELL DISTRI WIDTH 17.2 % (0-14.5)
[2025-02-23 09:49] LABS: BUN 9 mg/dl (9-23)
[2025-02-23] MEDS ORDERED: LANTUS SOL100 UNIT/1 SQ (13:30)
[2025-02-23] MEDS ORDERED: NEURONTIN300 MG PO (13:31)
[2025-02-23] MEDS ORDERED: OXYCODONE HCL5 MG PO (13:32)
[2025-02-23] MEDS ORDERED: ACETAMINOPHEN 325 MG TAB PO PRN (13:35)
[2025-02-23] MEDS ORDERED: DEXTROSE 50% 25 GM/50 ML VIAL IV PRN (14:50)
[2025-02-23] MEDS ORDERED: hydrALAZINE hydrochloride 20 MG/ML VIAL IV ONE ×2 (16:20→17:30)
[2025-02-23] MEDS ORDERED: INSULIN LISPRO 1 UNIT/0.01 ML SQ SCH (16:30)
[2025-02-23] MEDS ORDERED: LISINOPRIL 20 MG TAB PO SCH (18:24)
[2025-02-23] MEDS ORDERED: OXYCODONE HCL (IR) 5 MG TAB PO PRN (19:55)
[2025-02-23] MEDS ORDERED: [UNRECOGNIZED DRUG - OTHER] PO (20:07)
[2025-02-23] MEDS ORDERED: GABAPENTIN 300 MG CAP PO SCH (22:00)
[2025-02-23] MEDS ORDERED: Acetaminophen/Oxycodone Hydr 7.5 MG/325 MG TABLET PO SCH (22:00)
[2025-02-23] MEDS ORDERED: EZETIMIBE 10 MG TAB PO SCH (22:00)
[2025-02-23] MEDS ORDERED: ESCITALOPRAM OXALATE 20 MG TAB PO SCH (22:00)
[2025-02-23] MEDS ORDERED: SODIUM CHLORIDE 0.9% 1,000 ML IV ONE (23:20)
[2025-02-24] VITALS: BP 160/94
[2025-02-24 05:59] LABS: BUN 15 mg/dl (9-23)
[2025-02-24 06:31] LABS: BASO # 0.1 10*3/uL (0.0-0.1); BASO % 0.5 % (0.0-1.0); EOS # 0.1 10*3/uL (0.0-0.4); EOS % 1.1 % (1.0-4.0); MEAN CELL VOLUME 81.7 fl (81.0-99.0); MEAN CORPUSCULAR HGB 24.9 pg (27.0-31.0); MEAN PLATELET VOLUME 10.4 fl (9.6-12.3); MONO # 0.7 10*3/uL (0.1-1.0); MONO % 6.2 % (3.0-9.0); NEUT # 6.4 10*3/uL (2.3-7.9); NEUT % 58.7 % (47.0-73.0); NUCLEATED RED BLOOD CELL 0.0 % (0.0-0.0); NUCLEATED RED BLOOD CELL 0.0 10*3/uL (0.0-0.0); PLATELET COUNT AUTOMATED 211 10*3/uL (130-400); RED CELL DISTRI WIDTH 17.3 % (0-14.5)
[2025-02-24 08:00] VITALS: BP 170/67
[2025-02-24] MEDS ORDERED: ISOSORBIDE MONONITRATE 60 MG TAB PO SCH (10:00)
[2025-02-24] MEDS ORDERED: Acetaminophen/Oxycodone Hydr 7.5 MG/325 MG TABLET PO SCH (10:00)
[2025-02-24 12:00] VITALS: BP 144/44
[2025-02-24] MEDS ORDERED: ATORVASTATIN CALCIUM 80 MG TAB PO SCH (12:00)
[2025-02-24] MEDS ORDERED: LISINOPRIL 40 MG TAB PO SCH (12:00)
[2025-02-24] MEDS ORDERED: Insulin Glargine, Recombinan 1 UNIT/0.01 ML SC SCH (12:00)
[2025-02-24 16:00] VITALS: BP 115/47
[2025-02-24 20:00] VITALS: BP 122/48
[2025-02-25] VITALS: BP 121/43
[2025-02-25 06:46] LABS: BASO # 0.1 10*3/uL (0.0-0.1); BASO % 0.5 % (0.0-1.0); EOS # 0.2 10*3/uL (0.0-0.4); EOS % 1.5 % (1.0-4.0); MEAN CELL VOLUME 81.8 fl (81.0-99.0); MEAN CORPUSCULAR HGB 25.0 pg (27.0-31.0); MEAN PLATELET VOLUME 10.6 fl (9.6-12.3); MONO # 0.6 10*3/uL (0.1-1.0); MONO % 6.6 % (3.0-9.0); NEUT # 5.7 10*3/uL (2.3-7.9); NEUT % 59.1 % (47.0-73.0); NUCLEATED RED BLOOD CELL 0.0 % (0.0-0.0); NUCLEATED RED BLOOD CELL 0.0 10*3/uL (0.0-0.0); PLATELET COUNT AUTOMATED 195 10*3/uL (130-400); RED CELL DISTRI WIDTH 17.8 % (0-14.5)
[2025-02-25 06:53] LABS: BUN 17 mg/dl (9-23)
[2025-02-25 08:00] VITALS: BP 146/65
[2025-02-25] MEDS ORDERED: MG-AL HYDROXIDE/SIMETICONE 30 ML UDC PO STA (09:33)
[2025-02-25] MEDS ORDERED: Dicyclomine Hydrochloride 20 MG/10 ML OSYR PO STA (09:33)
[2025-02-25 12:00] VITALS: BP 125/54
[2025-02-25] MEDS ORDERED: MED. FROM HOME 1 EACH EA PO SCH (12:00)
[2025-02-25] MEDS ORDERED: LISINOPRIL40 MG PO (14:18)
[2025-02-25] MEDS ORDERED: AMLODIPINE BESYL5 MG PO (14:18)
== END 2025-02-25 14:34 | disposition home or self-care (01) | DRG 74 ==
LOC: ED 08:38 → 5E 12:35 → EDHOLD 12:35 → 5E 13:13
PROVIDERS: Student in an Organized Health Care Education/Training Program; ADMIT Internal Medicine; ATTEND Internal Medicine
PROC: 0HBRXZZ Excision of Toe Nail, External Approach (ICD-10-PCS; principal; 2025-02-23)
PROC: 0HBRXZZ Excision of Toe Nail, External Approach (ICD-10-PCS; 2025-02-23)
PROC: 0HBRXZZ Excision of Toe Nail, External Approach (ICD-10-PCS; 2025-02-23)
PROC: 0HBRXZZ Excision of Toe Nail, External Approach (ICD-10-PCS; 2025-02-23)
PROC: 0HBRXZZ Excision of Toe Nail, External Approach (ICD-10-PCS; 2025-02-23)
PROC: 0HBRXZZ Excision of Toe Nail, External Approach (ICD-10-PCS; 2025-02-23)
PROC: 0HBRXZZ Excision of Toe Nail, External Approach (ICD-10-PCS; 2025-02-23)
PROC: 0HBRXZZ Excision of Toe Nail, External Approach (ICD-10-PCS; 2025-02-23)
PROC: 0HBRXZZ Excision of Toe Nail, External Approach (ICD-10-PCS; 2025-02-23)
PROC: 0HBRXZZ Excision of Toe Nail, External Approach (ICD-10-PCS; 2025-02-23)
DX: G90.9 Disorder of the autonomic nervous system, unspecified (principal); I24.89 Other forms of acute ischemic heart disease; G45.9 Transient cerebral ischemic attack, unspecified; R94.31 Abnormal electrocardiogram [ECG] [EKG]; S09.90XA Unspecified injury of head, initial encounter; I16.0 Hypertensive urgency; I25.10 Atherosclerotic heart disease of native coronary artery without angina pectoris; X58.XXXA Exposure to other specified factors, initial encounter; E78.5 Hyperlipidemia, unspecified; K21.9 Gastro-esophageal reflux disease without esophagitis; I12.9 Hypertensive chronic kidney disease with stage 1 through stage 4 chronic kidney disease, or unspecified chronic kidney disease; E11.22 Type 2 diabetes mellitus with diabetic chronic kidney disease; E11.65 Type 2 diabetes mellitus with hyperglycemia; B35.1 Tinea unguium; B35.3 Tinea pedis; E11.43 Type 2 diabetes mellitus with diabetic autonomic (poly)neuropathy; N18.31 Chronic kidney disease, stage 3a; M48.061 Spinal stenosis, lumbar region without neurogenic claudication; Z98.51 Tubal ligation status; Z88.2 Allergy status to sulfonamides; Z88.8 Allergy status to other drugs, medicaments and biological substances; Z90.49 Acquired absence of other specified parts of digestive tract; Z87.891 Personal history of nicotine dependence; Y93.89 Activity, other specified; Y92.89 Other specified places as the place of occurrence of the external cause; Y99.8 Other external cause status; Z86.718 Personal history of other venous thrombosis and embolism; Z79.01 Long term (current) use of anticoagulants; Z79.4 Long term (current) use of insulin; Z83.3 Family history of diabetes mellitus

== ENCOUNTER → 2025-03-04 | Outpatient (CLI) | payer OTHER ==
[~2025-03-04] MED LIST changes: +LISINOPRIL40 MG PO; +OXYCODONE HCL5 MG PO; +[UNRECOGNIZED DRUG - OTHER] PO
== END | disposition home or self-care (01) ==
LOC: RESCLI 01:27
PROVIDERS: ATTEND Student in an Organized Health Care Education/Training Program
DX: I10 Essential (primary) hypertension (principal); E78.5 Hyperlipidemia, unspecified; I25.10 Atherosclerotic heart disease of native coronary artery without angina pectoris; H61.20 Impacted cerumen, unspecified ear; J30.9 Allergic rhinitis, unspecified; E11.42 Type 2 diabetes mellitus with diabetic polyneuropathy; R26.9 Unspecified abnormalities of gait and mobility; F41.9 Anxiety disorder, unspecified; G89.29 Other chronic pain; H66.90 Otitis media, unspecified, unspecified ear; K92.2 Gastrointestinal hemorrhage, unspecified; E55.9 Vitamin D deficiency, unspecified; E53.9 Vitamin B deficiency, unspecified; Z79.82 Long term (current) use of aspirin; Z79.899 Other long term (current) drug therapy

== ENCOUNTER → 2025-03-21 | Outpatient (CLI) | payer OTHER | END | disposition home or self-care (01) | LOC: RESCLI 04:23 | PROVIDERS: ATTEND Internal Medicine | DX: R21 Rash and other nonspecific skin eruption (principal); E11.9 Type 2 diabetes mellitus without complications; I10 Essential (primary) hypertension; Z88.2 Allergy status to sulfonamides; Z88.8 Allergy status to other drugs, medicaments and biological substances; Z79.899 Other long term (current) drug therapy; Z98.890 Other specified postprocedural states ==

== ENCOUNTER → 2025-04-21 | Outpatient (CLI) | payer OTHER ==
[2025-04-21 14:05] LABS: BUN 8 mg/dl (9-23); LDL CHOLESTEROL 43 mg/dL (9-159); SGPT/ALT 36 U/L (5-49)
== END | disposition home or self-care (01) ==
LOC: LAB 13:21
PROVIDERS: ATTEND Internal Medicine Endocrinology, Diabetes & Metabolism
DX: E78.5 Hyperlipidemia, unspecified (principal); E11.9 Type 2 diabetes mellitus without complications